=== PATIENT | female | born 1970 | race Caucasian/White ===

== ENCOUNTER → 2020-01-07 | Outpatient (CLI) | payer BC, SELFPAY ==
[2020-01-06 16:02] VITALS: BMI 29.7
[2020-01-11 17:53] LABS: HPV Reflexed? NOT INDICATED
== END | disposition home or self-care (01) ==
LOC: LABSPEC 08:54
PROVIDERS: PCP Family Medicine; Visit Provider Family Medicine
DX: Z01.419 Encounter for gynecological examination (general) (routine) without abnormal findings (principal); Z12.4 Encounter for screening for malignant neoplasm of cervix
CPT/HCPCS: 88175; G0145

== ENCOUNTER → 2020-01-12 15:50 | Outpatient (CLI) | payer BC, SELFPAY ==
[2020-01-06 16:02] VITALS: BMI 29.7
--- NOTE | 2020-01-12 15:57 | BI_ITS ---
MAMMOGRAPHY - BILATERAL SCREENING REASON FOR EXAM: Female, 50 years old. Routine annual screening examination. PERTINENT HISTORY: Non-contributory. TECHNIQUE: Digital bilateral breast alecia (3D mammographic acquisition) in the CC and MLO projections. 2-D mediolateral oblique (MLO) and craniocaudad (CC) views of both breasts were obtained. CAD: Full Field Digital Mammography with Computer Added Detection was performed. COMPARISON: Comparison is made with prior study dated November 29, 2017 and October 14, 2015. FINDINGS: Breast Composition: The breasts are almost entirely fatty. There are no dominant masses or suspicious calcifications. No other significant abnormalities are identified. There has been no significant change since the prior study. BI/SCREEN MAMM (CAD) W/ALECIA BILAT IMPRESSION: Stable bilateral screening mammogram. Yearly follow-up mammogram recommended. (A) ASSESSMENT CATEGORY: BIRADS Category 1: Negative. A letter regarding these results will be sent to the patient by the facility within 30 days. Approximately 10% of breast cancers are not detected by mammography. A normal mammogram should not delay biopsy of a clinically suspicious abnormality. [id number] Electronically Signed: Richard Lozoya, at 9:18 EST , Service support ,
== END ==
PROVIDERS: PCP Family Medicine; Referring Provider Family Medicine; Visit Provider Family Medicine
DX: Z12.31 Encounter for screening mammogram for malignant neoplasm of breast (principal)
CPT/HCPCS: 77063; 77067

== ENCOUNTER → 2021-06-07 13:22 | Outpatient (CLI) | payer OTHER, SELFPAY ==
[2021-06-07 13:01] VITALS: BMI 29.7
[2021-06-07 15:07] LABS: Absolute Lymphocyte Count 1.33 X10^3/uL (0.83-4.51); Basophil# 0.02 X10^3/uL; Basophil% 0.4 % (0-1); Eosinophil# 0.18 X10^3/uL; Eosinophils% 3.6 % (0-5); Hemoglobin 12.6 g/dL (12.0-15.0); Lymphocyte # 1.33 X10^3/ul (0.83-4.51); Lymphocyte % 26.5 % (19-41); Mean Corp Hgb Conc 32.3 g/dL (32-36); Mean Corpuscular Hgb 28.2 pg (27.0-32.0); Mean Corpuscular Volume 87.2 fL (81-99); Mean Platelet Vol. 10.5 fl (6.2-12.0); Monocyte# 0.44 X10^3/uL; Monocyte% 8.8 % (0-10); NRBC Flagged by Analyzer 0 % (0-5); Neutrophil # 3.02 X10^3/uL (2.7-7.7); Neutrophil % 60.1 % (47-70); Platelet Count 251 K/mm3 (150-450); RBC Distribution Width CV 13.1 % (11.6-14.6); RBC Distribution Width SD 41.5 fl (35.1-43.9); Red Blood Count 4.47 M/mm3 (4.2-5.4)
[2021-06-07 15:27] LABS: Erythrocyte Sedimentation Rate 42 mm/hr (0-30)
[2021-06-07 15:30] LABS: Anion Gap 6 (5-15); BUN 16 mg/dL (7-18); BUN/Creat Ratio 17.9 RATIO (10-20); Calcium,Total 8.7 mg/dL (8.5-10.1); Chloride 103 mmol/L (98-107); EST Glomerular Filtration Rate 70 mL/min (>60); Est Glom Filt Rate - Afr Amer 85 mL/min (>60); Glucose 125 mg/dL (74-106); Potassium 4.2 mmol/L (3.5-5.1); Sodium Level 138 mmol/L (136-145)
== END ==
PROVIDERS: PCP Family Medicine; Referring Provider Family Medicine; Visit Provider Family Medicine
DX: I31.9 Disease of pericardium, unspecified (principal)
CPT/HCPCS: 36415; 80048; 85025; 85652

== ENCOUNTER → 2021-06-27 15:09 | Outpatient (CLI) | payer OTHER, SELFPAY ==
[2021-06-07 13:01] VITALS: BMI 29.7
--- NOTE | 2021-06-27 15:13 | BI_ITS ---
MAMMOGRAPHY - BILATERAL SCREENING REASON FOR EXAM: Female, 51 years old. Routine annual screening examination. PERTINENT HISTORY: Non-contributory. TECHNIQUE: Digital bilateral breast alecia (3D mammographic acquisition) in the CC and MLO projections. 2-D mediolateral oblique (MLO) and craniocaudad (CC) views of both breasts were obtained. CAD: Full Field Digital Mammography with Computer Added Detection was performed. COMPARISON: Comparison is made with prior study dated 01/12/2020 and 11/29/2017. FINDINGS: Breast Composition: The breasts are heterogeneously dense, which may obscure small masses. There are no dominant masses or suspicious calcifications. No other significant abnormalities are identified. There has been no significant change since the prior study. BI/SCRN MAMM (CAD)W/ALECIA BILAT IMPRESSION: Stable bilateral screening mammogram. Yearly follow-up mammogram recommended. (A) ASSESSMENT CATEGORY: BIRADS Category 1: Negative. A letter regarding these results will be sent to the patient by the facility within 30 days. Approximately 10% of breast cancers are not detected by mammography. A normal mammogram should not delay biopsy of a clinically suspicious abnormality. [id number] Electronically Signed: Richard Lozoya MD at 8:03 EDT , Service support ,
== END ==
PROVIDERS: PCP Family Medicine; Referring Provider Family Medicine; Visit Provider Family Medicine
DX: Z12.31 Encounter for screening mammogram for malignant neoplasm of breast (principal)
CPT/HCPCS: 77063; 77067

== ENCOUNTER → 2022-08-09 | Outpatient (CLI) | payer OTHER, SELFPAY ==
--- NOTE | 2022-08-09 12:12 | BI_ITS ---
MAMMOGRAPHY - BILATERAL SCREENING REASON FOR EXAM: Female, 52 years old. Routine annual screening examination. PERTINENT HISTORY: Non-contributory. TECHNIQUE: Digital bilateral breast alecia (3D mammographic acquisition) in the CC and MLO projections. 2-D mediolateral oblique (MLO) and craniocaudad (CC) views of both breasts were obtained. CAD: Full Field Digital Mammography with Computer Added Detection was performed. COMPARISON: Comparison is made with prior study dated 06/27/2021 01/12/2020. FINDINGS: Breast Composition: The breasts are heterogeneously dense, which may obscure small masses. There are no dominant masses or suspicious calcifications. No other significant abnormalities are identified. There has been no significant change since the prior study. BI/SCRN MAMM (CAD)W/ALECIA BILAT IMPRESSION: Stable bilateral screening mammogram. Yearly follow-up mammogram recommended. (A) ASSESSMENT CATEGORY: BIRADS Category 1: Negative. A letter regarding these results will be sent to the patient by the facility within 30 days. Approximately 10% of breast cancers are not detected by mammography. A normal mammogram should not delay biopsy of a clinically suspicious abnormality. [id number] Electronically Signed: Richard Lozoya MD at 12:58 EDT ,
== END | disposition home or self-care (01) ==
LOC: OPBI 12:09
PROVIDERS: PCP Family Medicine; Visit Provider Obstetrics & Gynecology Gynecology
DX: Z12.31 Encounter for screening mammogram for malignant neoplasm of breast (principal)
CPT/HCPCS: 77063; 77067

== ENCOUNTER 2022-09-28 10:04 | Outpatient (CLI) | payer OTHER, SELFPAY ==
[2022-09-28 11:09] LABS: EXAGEN MAILED SPECIMEN
[2022-09-28 12:14] LABS: Absolute Neutrophil Count 2.5 X10^3/uL (2.0-7.7); Basophil# 0.03 X10^3/uL; Basophil% 0.7 % (0-1); Eosinophil# 0.09 X10^3/uL; Eosinophils% 2.2 % (0-5); Hematocrit 39.1 % (37-47); Hemoglobin 13.3 g/dL (12.0-15.0); Lymphocyte % 24.9 % (19-41); Mean Corpuscular Hgb 29.6 pg (27.0-32.0); Mean Corpuscular Volume 87.1 fL (81-99); Mean Platelet Vol. 11.1 fl (6.2-12.0); Monocyte# 0.35 X10^3/uL; Monocyte% 8.7 % (0-10); NRBC Flagged by Analyzer 0 % (0-5); Neutrophil # 2.53 X10^3/uL (2.7-7.7); Neutrophil % 63.3 % (47-70); Platelet Count 110 K/mm3 (150-450); RBC Distribution Width CV 12.9 % (11.6-14.6); RBC Distribution Width SD 40.9 fl (35.1-43.9); Red Blood Count 4.49 M/mm3 (4.2-5.4)
[2022-09-28 12:18] LABS: Protein, Urine (Random) 10.3 mg/dL (<11.9); Protein:Creat Ratio 124 mg/g CRE (0-200)
[2022-09-28 12:24] LABS: Color, Urine Yellow (Yellow); Glucose, Dipstick Normal (Normal); Ketone-Dipstick Negative (Negative); Leukocyte Esterase-Dipstick 25 /ul (Negative); Nitrite-Dipstick Negative (Negative); Occult Blood-Urine Negative /ul (Negative); Protein-Dipstick Negative (Negative); Specific Gravity, Urine 1.015 (1.002-1.030); Urine Bilirubin Dipstick Negative (Negative); Urine Clarity Clear (Clear); Urine Urobilinogen Normal (Normal)
[2022-09-28 12:39] LABS: ALB/GLOB Ratio 0.7 RATIO (0.9-2.4); AST(SGOT) 19 U/L (15-37); Alanine Aminotransfer ALT/SGPT 24 U/L (13-56); Albumin, Serum 3.7 g/dL (3.2-5.0); Alkaline Phosphatase 71 U/L (45-117); Anion Gap 4 (5-15); BUN 17 mg/dL (7-18); BUN/Creat Ratio 20.8 RATIO (10-20); Calcium,Total 8.9 mg/dL (8.5-10.1); Chloride 104 mmol/L (98-107); Creatinine, Serum 0.82 mg/dL (0.55-1.02); EST Glomerular Filtration Rate 77 mL/min (>60); Est Glom Filt Rate - Afr Amer 94 mL/min (>60); Globulin 5.2 g/dL (2.2-4.2); Glucose 95 mg/dL (74-106); Potassium 4.1 mmol/L (3.5-5.1); Protein, Total 8.9 g/dL (6.4-8.2); Sodium Level 136 mmol/L (136-145)
[2022-09-28 13:17] LABS: Hepatitis B Surface Antibody Non-Reactive; Hepatitis B Surface Antigen Non-Reactive (Nonreactive); Hepatitis C Antibody Non-Reactive (Nonreactive)
[2022-09-28 13:33] LABS: Partial Thromboplast Time 27.3 Seconds (24.1-36.2); Prothrombin Time (Protime)PT. 13.3 SECONDS (11.7-14.9)
[2022-10-01 03:07] LABS: Hexagonal Phase Phospholipid 2 sec (0-11)
== END 2022-09-28 23:59 | disposition home or self-care (01) ==
LOC: MTLAB 10:07
PROVIDERS: PCP Family Medicine; Referring Provider Internal Medicine Rheumatology; Visit Provider Internal Medicine Rheumatology
DX: M06.4 Inflammatory polyarthropathy (principal); R76.8 Other specified abnormal immunological findings in serum; L65.9 Nonscarring hair loss, unspecified; M19.041 Primary osteoarthritis, right hand; F32.A Depression, unspecified
CPT/HCPCS: 36415; 80053; 81002; 82570; 84156; 85025; 85598; 85610; 85730; 86706; 86803; 87340

== ENCOUNTER → 2023-08-09 | Outpatient (CLI) | payer OTHER, SELFPAY ==
--- NOTE | 2023-08-09 12:45 | ECHOCS_ITS ---
Reason For Study: Dyspnea/SOB Procedure This was a 2D Doppler, Color Flow transthoracic echocardiogram. Contrast injection was performed. Exam performed in department. Left Ventricle Normal LV size. Left ventricular systolic function is normal. The estimated ejection fraction is 65 %. No regional wall motion abnormalities noted. Right Ventricle Normal RV size. Normal systolic function. Atria Normal left atrium. Normal right atrium. Mitral Valve Normal mitral valve. Mild (1+) eccentric mitral valve insufficiency. Tricuspid Valve Normal tricuspid valve. Aortic Valve Trisinus/trileaflet aortic valve. Pulmonic Valve Normal pulmonic valve. Great Vessels Normal aortic root. The pulmonary artery is normal size. Normal inferior vena cava. Pericardium/Pleural No pericardial effusion. Medication 22 gauge I.V. with prn adaptor inserted into right arm. Diluted definity 1.5ml given slow IV push to enhance endocardial definition. Performed a rapid injection of agitated mix of 9 cc saline and 1cc air to assess for atrial septal defect. MMode/2D Measurements & Calculations LVIDd: 4.0 cm IVSd: 1.1 cm Ao root diam: 2.6 cm LVIDs: 2.9 cm LVPWd: 1.0 cm LA dimension: 3.3 cm RVDd: 3.0 cm FS: 27.1 % LAV(MOD-bp): 51.9 ml LVAd ap4: 27.0 cm2 SV(MOD-sp4): 49.6 ml LAV(MOD-bp) Indexed: 29.4 ml/m2 LVLd ap4: 8.1 cm LAV(MOD-sp2): 62.7 ml EDV(MOD-sp4): 73.3 ml LAV(MOD-sp4): 41.5 ml EDV(sp4-el): 76.1 ml LVAs ap4: 13.6 cm2 LVLs ap4: 6.8 cm ESV(MOD-sp4): 23.7 ml ESV(sp4-el): 23.0 ml EF(MOD-sp4): 67.7 % EF(sp4-el): 69.7 % SV(sp4-el): 53.1 ml LA A4 area: 17.1 cm2 RA A4 area: 11.9 cm2 TAPSE: 1.8 cm Time Measurements MV dec time: 0.17 sec Doppler Measurements & Calculations MV E max eliezer: 95.1 cm/sec Lat Peak E' Eliezer: 11.1 cm/sec Med Peak E' Eliezer: 11.8 cm/sec MV A max eliezer: 82.0 cm/sec E/E' lat: 8.6 E/E' med: 8.0 MV E/A: 1.2 MV V2 max: 132.6 cm/sec MV P1/2t max eliezer: 133.3 cm/sec Ao V2 max: 147.3 cm/sec MV max P.0 mmHg MV P1/2t: 70.9 msec Ao max P.7 mmHg MV V2 mean: 65.0 cm/sec Ao V2 mean: 99.5 cm/sec MV mean P.1 mmHg MV dec slope: 550.9 cm/sec2 Ao mean P.6 mmHg MV V2 VTI: 34.9 cm MVA(P1/2t): 3.1 cm2 Ao V2 VTI: 33.0 cm AV (velocity ratio): 0.78 LV V1 max: 106.2 cm/sec MR max eliezer: 555.9 cm/sec PA V2 max: 57.4 cm/sec LV V1 max P.5 mmHg MR max P.6 mmHg LV V1 mean P.7 mmHg MR mean eliezer: 475.6 cm/sec LV V1 mean: 78.3 cm/sec MR mean P.6 mmHg LV V1 VTI: 25.6 cm MR VTI: 218.0 cm ECHO/Echo Complete W/ Contrast Interpretation Summary Normal LV size. Left ventricular systolic function is normal. The estimated ejection fraction is 65 %. Mild (1+) eccentric mitral valve insufficiency. Contrast injection was performed. Ordering Physician: Espinoza Stacy Referring Physician: Espinoza Stacy Performed By: Devon Hendrickson RCS
== END | disposition home or self-care (01) ==
LOC: CVS 12:45
PROVIDERS: PCP Family Medicine; Referring Provider Family Medicine; Visit Provider Family Medicine
DX: R06.00 Dyspnea, unspecified (principal)
CPT/HCPCS: 93306; Q9957; A4216; C8929

== ENCOUNTER → 2023-11-05 | Outpatient (CLI) | payer OTHER, SELFPAY | END | disposition home or self-care (01) | LOC: LABSPEC 11:19 | PROVIDERS: PCP Family Medicine; Visit Provider Family Medicine | DX: J06.9 Acute upper respiratory infection, unspecified (principal) | CPT/HCPCS: 87635 ==

== ENCOUNTER → 2023-12-24 | Outpatient (CLI) | payer OTHER, SELFPAY ==
--- NOTE | 2023-12-24 15:53 | BI_ITS ---
MAMMOGRAPHY - BILATERAL SCREENING REASON FOR EXAM: Female, 53 years old. Routine annual screening examination. PERTINENT HISTORY: Non-contributory. TECHNIQUE: Digital bilateral breast alecia (3D mammographic acquisition) in the CC and MLO projections. 2-D mediolateral oblique (MLO) and craniocaudad (CC) views of both breasts were obtained. CAD: Full Field Digital Mammography with Computer Added Detection was performed. COMPARISON: Comparison is made with prior study dated August 09, 2022 and June 27, 2021. FINDINGS: Breast Composition: The breasts are heterogeneously dense, which may obscure small masses. There are no dominant masses or suspicious calcifications. No other significant abnormalities are identified. There has been no significant change since the prior study. BI/SCRN MAMM (CAD)W/ALECIA BILAT IMPRESSION: Stable bilateral screening mammogram. Yearly follow-up mammogram recommended. (A) ASSESSMENT CATEGORY: BIRADS Category 1: Negative. A letter regarding these results will be sent to the patient by the facility within 30 days. Approximately 10% of breast cancers are not detected by mammography. A normal mammogram should not delay biopsy of a clinically suspicious abnormality. [id number] Electronically Signed: Richard Lozoya MD at 13:20 EST ,
--- OUTSIDE RECORDS SUMMARY | 2023-12-24 16:16 | XMS RPT_ITS | CCD ---
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 Name Role Phone ROSA GARDNER Primary Care Physician JUAN MCCRAY DO Primary Care Physician Unavailable Primary Care Provider SADIE Darnell Attending Venancio VALDEZ MD, DR ASIF Roberts Attending Unavailab damien MCCRAY DO, JUAN R Primary Care Unavailable PATTI MOTA, DR RAMEY Attending UnavailROSA Gupta Primary Care Unavailabl e MAHENDRA MEDINA, JUAN R Primary Care Unavailable PATTI MOTA, DR RAMEY Attending Unavailabl e MAHENDRA MEDINA, JUAN R Primary Care Unavailable JOSÉ MIGUEL MOTA, DR ASIF Roberts Attending Unavailab Yaritza MOTA, DR ASIF Roberts Attending Unavailab le MAHENDRA MEDINA, JUAN R Primary Care Unavailable PATTI MOTA, DR RAMEY Attending Unavailabl e MAHENDRA MEDINA, JUAN R Primary Care Unavailable PATTI MOTA, DR RAMEY Attending Unavailabl e MAHENDRA DO, JUAN R Primary Care Unavailable BROWN DO, JUAN R Primary Care Unavailable PATTI MOTA, DR RAMEY Attending Unavailabl e BROWN DO, JUAN R Primary Care Unavailable CHRISTINE BENJAMIN PA-C Attending Unavailable WILEY PATTERSON MD Attending Unavail able BROWN DO, JUAN R Primary Care Unavailable BROWN DO, JUAN R Primary Care Unavailable IRMA CORDOVA MD Attending Unavailable PATTI MOTA, DR RAMEY Attending Unavailabl e BROWN , JUAN R Primary Care Unavailable JOSÉ MIGUEL MOTA, DR ASIF Roberts Attending Unavailab le MAHENDRA MEDINA, JUAN R Primary Care Unavailable Medications Current Medications Medication Drug Class(es) Dates Sig (Normalized) Sig (Original) escitalopram 20 mg oral tablet (8 sources) Serotonin Reuptake Inhibitor Start: 07-09-2022 escitalopram 20 mg oral tablet Dose : 20 mg = 1 tab(s), Oral, qDay, # 90 tab(s), 3 Refill(s), Pharmacy: [id number], Depression, 153, cm, 07/09/22 11:12:00 EDT, Height Start Date: 07/09/22 Status: Ordered Completed/Discontinued Medications Medication Drug Class(es) Dates Sig (Normalized) Sig (Original) folic acid 1 mg oral tablet (9 sources) Start: 08-23-2023 folic acid 1 mg tablet Problems Problem Classification Problem Date Documented Date Episodic/Chronic Immunizations and screening for infectious disease (2 sources) Abnormal finding on evaluation procedure; Translations: [Other specified abnormal immunological findings in serum] Episodic Mood disorders (1 source) Depressive disorder; Translations: [Depression, unspecified] Chronic Osteoarthritis (2 sources) Localized, primary osteoarthritis of the hand; Translations: [Primary osteoarthritis, right hand] Chronic Other aftercare (3 sources) Long-term current use of drug therapy; Translations: [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] Episodic Other non-traumatic joint disorders (9 sources) Knee pain 10-05-2015 Episodic Other non-traumatic joint disorders (1 source) Pain in right knee; Translations: [Pain in joint, lower leg] 08-30-2023 Episodic Other skin disorders (1 source) Non-scarring alopecia; Translations: [Nonscarring hair loss, unspecified] Episodic Pleurisy; pneumothorax; pulmonary collapse (1 source) Pleurisy; Translations: [Pleurisy] Onset: 11-06-2023 Episodic Rheumatoid arthritis and related disease (10 sources) Rheumatoid arthritis of multiple joints; Translations: [Rheumatoid arthritis with rheumatoid factor of multiple sites without organ or systems involvement] Chronic Spondylosis; intervertebral disc disorders; other back problems (1 source) Lumbosacral spondylosis; Translations: [Other spondylosis, lumbosacral region] Chronic Results Test Name Value Interpretation Reference Range Facil ity Vital Signs Date Time Vital Sign Value Performing Clinician Serenity win 11-06-2023 14:59-0500 Body temperature 98.42 [degF] WILEY PATTERSON MD [facility] 11-06-2023 14:59-0500 Diastolic Blood Pressure Non-Invasive 70 mm[Hg] WILEY PATTERSON MD [facility] 11-06-2023 14:59-0500 Heart rate 99 /min WILEY PATTERSON MD [facility] 11-06-2023 14:59-0500 Respiratory rate 20 /min WILEY PATTERSON MD [facility] 11-06-2023 14:59-0500 Systolic Blood Pressure Non-Invasive 125 mm[Hg] WILEY PATTERSON MD [facility] Encounters Encounter Date Encounter Type Care Provider Facility Start: 12-17-2023 ambulatory JUAN MCCRAY DO Faci lity:B Start: 12-16-2023 ambulatory JUAN MCCRAY DO Faci lity:B Start: 12-13-2023 End: 12-14-[address] ASIF VALDEZ MD Facility:B Start: 12-04-[address] ASIF VALDEZ MD F acility:B Start: 11-06-2023 End: 11-06-2023 Emergency department patient visit WILEY PATTERSON MD Facility:B Start: 11-06-2023 End: 11-06-2023 Emergency department patient visit WILEY PATTERSON MD [facility] Start: 11-05-2023 End: 11-06-[address] KAROLINE ARMSTRONG MD Facility:B Start: 11-05-2023 End: 11-05-[address] KAROLINE ARMSTRONG MD [facility] Start: 09-18-2023 Orders Only Sadie Hansen MD Work Phone: [facility] Procedures Date Procedure Procedure Detail Performing Clinician Start: 05-21-2003 Decompression of med faye nerve 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 Plan of Treatment Date Care Activity Detail Author Start: 08-02-2023 Influenza vaccination Influenza Vacc ine (#1) [facility] Start: 12-02-2022 Depression Assessment Depression Ass essment [facility] Start: 06-23-2021 Covid-19 Vaccine (3 - Moderna risk series) Covid-19 Vaccine (3 - Moderna risk series) [facility] Start: 2018 Shingrix Vaccine (1 of 2) Shingrix V accine (1 of 2) [facility] Start: 2013 Cologuard (FIT-DNA) Cologuard (FIT-D NA) [facility] Start: 2013 Colonoscopy Colonoscopy [facility] Start: 2013 Colorectal Cancer Screening Colorectal Cancer Screening [facility] Start: [address] COLONOGRAPHY [facility] Start: 2013 Diabetes Screening Diabetes Screenin g [facility] Start: 2013 Fecal Occult Blood Fecal Occult Bloo d [facility] Start: 2013 Lipid 1996 panel - S thelma or Plasma Lipid Screening [facility] Start: 2013 SIGMOIDOSCOPY SIGMOIDOSCOPY [facility] Start: 2008 Mammography Mammogram Screening [facility] Start: 1998 HPV Testing HPV Testing [facility] Start: 1989 Pap Testing Pap Testing [facility] Start: 1987 Shingrix Vaccine (1 of 2) Shingrix V accine (1 of 2) [facility] Start: 1987 Urine microalbumin profile DTa P,Tdap,Td Vaccine (1 - Tdap) [facility] Start: 1986 Hepatitis C Screening Hepatitis C Sc reening [facility] Start: 1986 HIV Screening HIV Screening [facility] Start: 1974 Pneumococcal vaccination Pneum ococcal Vaccine (1 - PCV) [facility] Start: 1968 Covid-19 Vaccine (#1) Covid-19 Vacci ne (#1) [facility] Start: 1968 Hepatitis B Vaccine (1 of 3 - 3-dose series) Hepatitis B Vaccine (1 of 3 - 3-dose series) [facility] Immunizations Immunization Date Immunization Notes Care Provider Germain carrasco 02-13-2010 influenza virus vaccine, H1N1, live [facility] 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 .1968 Unknown [id number] [id number] .1968 Unknown [id number] [id number] .1968 Unknown [id number] [id number] .1968 Unknown [id number] [id number] .1968 Unknown [id number] [id number] .1968 Unknown [id number] [id number] .627 1968 Unknown [id number] [id number] .627 1968 Unknown [id number] [id number] .627 1968 Unknown [id number] .627 Social History Date Type Detail Facility Start: 10-27-2019 End: 11-06-2023 Never smoked tobacco (finding) [facility] Sex Assigned At [facility] Tobacco smoking status KYIS Tobacco smoking consumption unknown [facility] Start: 1970 Sex Assigned At Not on file [facility] Gender identity Not on file [facility] in Functional Status Date Assessment Result Facility 11-06-2023 Functional Status Standard Safet y ID band on, Call device within reach, Bed in low position, Wheels locked, Bedside Cart Locked, Visitor at bedside, Safety level maintained [facility] Clinical Notes 06-19-2022 to 11-06-2023 Sadie Hansen MD - 08/30/2023 10:29 AM EDTTelephone Encounter - Tiffayn Alberto RN - 08/29/2023 2:22 PM EDTRadiologyRadiologyRadiology Note Date & Type Note Facility 11-06-2023 Hospital Discharge instructions Patient Education 11/06/2023 16:06:55 Pleurisy Pleurisy If you have pleurisy, the lining around your lungs is inflamed. This is most often due to a viral infection or pneumonia. It usually lasts for 10 to 14 days. It may cause sharp pain with breathing, coughing, sneezing, and movement. Antibiotics are usually not prescribed for this condition unless bacterial pneumonia is also present. The following tips will help you care for your condition at home: If symptoms are severe, rest at home for the first 2 to 3 days. When you resume activity, don't let yourself get too tired. Don't smoke. Also stay away from secondhand smoke. You may use rkbh-drf-jgvglld medicines to control pain, unless another pain medicine was prescribed. (Note: If you have chronic liver or kidney disease or have ever had a stomach ulcer or gastrointestinal bleeding, talk with your healthcare provider before using these medicines. Also talk to your provider if you are taking medicine to prevent blood clots.) Aspirin should never be given to anyone younger than 18 years of age who is ill with a viral infection or fever. It may cause severe liver or brain damage. Follow-up care Follow up with your healthcare provider, or as advised. When to seek medical advice Call your healthcare provider right away if any of these occur: Fever of 100.4 F (38 C) or higher, or as directed by your healthcare provider Coughing up lots of colored sputum (mucus) or light, blood-tinged sputum Redness, pain, or swelling of the leg Call 911 Call 911 if any of these occur: Increasing shortness of breath Increasing chest pain, or pain that spreads to the neck, arm, or back Coughing up blood [phone] The [employer]. [address] [place] [address]. All rights reserved. This information is not intended as a substitute for professional medical care. Always follow your healthcare professional's instructions. Follow Up Care 11/06/2023 14:56:38 With:JUAN MCCRAY DO Address: [facility] [address] [place] [address] [place] [phone] When:2-4 days [facility] 11-06-2023 Note Discharge Instructions Thank you for allowing [facility] to assist you with your healthcare needs. The following is important discharge information regarding your hospital visit. Diagnosis from Today's Visit Pleurisy Pleuritic pain What to Do Next Instructions from Your Care Team May continue to take ibuprofen 400 mg every 4 hours. May add Tylenol 500 mg every 6 hours for pain. Follow-up with your primary care provider. Return emergency department should you develop shortness of breath or worsening chest pain. No qualifying data available. Post Acute Orders No qualifying data available. You Need to Schedule the Following Appointments Follow Up with JUAN MCCRAY DO When Within 2-4 days Where: [facility] [address] [place] [address] [place] [address]- [phone] Allergies NKA Medications Please ask your primary doctor or pharmacist before taking any other medication not listed, including over the counter drugs, herbal medications, vitamins and or supplements as they may interact with your home medications. What How Much When Why Instructions Last Dose Unchanged escitalopram (escitalopram 20 mg oral tablet) 1 tab(s) by mouth Once a day Depression Unchanged folic acid (folic acid 1 mg oral tablet) take 2 tablets by mouth once daily Unchanged ibuprofen (ibuprofen 600 mg oral tablet) 1 tab(s) by mouth Every 8 hours Duration: 14 Days Take with food or milk. Unchanged leucovorin (leucovorin 15 mg oral tablet) take 1 tablet by mouth ONCE A WEEK Unchanged methotrexate (methotrexate 2.5 mg oral tablet) take 5 tablets by mouth every week . START BY TAKING 4 TABLETS ONCE A WEEK FOR 2 WEEKS Please take this list to your next doctor s visit. Bring all medications you take, including over the counter medications, herbals and other supplements with you to your doctor s visit. Patients and families are reminded to discard old lists and to update any records with all medication providers or retail pharmacies. Education Materials Pleurisy If you have pleurisy, the lining around your lungs is inflamed. This is most often due to a viral infection or pneumonia. It usually lasts for 10 to 14 days. It may cause sharp pain with breathing, coughing, sneezing, and movement. Antibiotics are usually not prescribed for this condition unless bacterial pneumonia is also present. The following tips will help you care for your condition at home: If symptoms are severe, rest at home for the first 2 to 3 days. When you resume activity, don't let yourself get too tired. Don't smoke. Also stay away from secondhand smoke. You may use lwwa-duw-xudlbca medicines to control pain, unless another pain medicine was prescribed. (Note: If you have chronic liver or kidney disease or have ever had a stomach ulcer or gastrointestinal bleeding, talk with your healthcare provider before using these medicines. Also talk to your provider if you are taking medicine to prevent blood clots.) Aspirin should never be given to anyone younger than 18 years of age who is ill with a viral infection or fever. It may cause severe liver or brain damage. Follow-up care Follow up with your healthcare provider, or as advised. When to seek medical advice Call your healthcare provider right away if any of these occur: Fever of 100.4 F (38 C) or higher, or as directed by your healthcare provider Coughing up lots of colored sputum (mucus) or light, blood-tinged sputum Redness, pain, or swelling of the leg Call 911 Call 911 if any of these occur: Increasing shortness of breath Increasing chest pain, or pain that spreads to the neck, arm, or back Coughing up blood [phone] [employer]. [address] [place] [address]. All rights reserved. This information is not intended as a substitute for professional medical care. Always follow your healthcare professional's instructions. Additional Information VACCINATE! IT SAVES LIVES! Members of the community who have not yet received the COVID-19 vaccine and would like to receive it can visit one of [facility] vaccine clinics. There are many vaccine clinic locations within the [facility]. For locations and available times, please visit www.gettheshot.coronavirus.[place].go v/. It is important to note that some COVID mobile vaccine clinics are held outdoors and may be canceled in rainy or stormy conditions. To learn more about pediatric vaccinations (ages 5-11), we invite you to visit the [facility] webpage. https://www.[facility].org/pag es/2447-Sfuhp-Oxjftuacjjl-Frequent tz-Ywrfi-Nokkzvqsc.html To learn more about the COVID-19 vaccine, we invite you to visit the CDC website for a list of frequently asked questions. https://www.cdc.gov/coronavirus/-ncov/vaccines/faq.html [facility] Access Instructions: Stay connected with your healthcare team and access your personal medical information anytime with the [facility] Patient Portal. If you would like a full copy of your medical records please contact the [facility] Medical Records Department Saturday through Saturday between 8a.m. and 4:30p.m. Please follow the directions below to access the portal: 1.Access the email account you provided upon registration to the [facility].2.Look for an invitation email from [facility].3.Open the email and access the invitation link: Accept Invitation to [employer]4.Fill in the required sotelo to create your account. Sign into [email or web address] with your username and password that you created in the above steps to stay up to date. You can then view a summary of results, a summary of your visits, and the ability to download your summaries to your computer or send the information securely to a physician. Remember that your healthcare information is confidential, so carefully consider who you will allow to register on the [facility] Patient Portal for access to your information. You can also access the [facility] Patient Portal on the [employer]. Simply click on Health Records under Health Data and then click on the [employer] logo. HOW TO SAFELY DISPOSE OF PRESCRIPTION MEDICATIONS Please use one of the following methods to safely dispose of your unused medications. 1.Use a drug disposal kit: the drug disposal pouch allows you to safely discard your old and unused drugs. Ask your nurse to give you one when you are discharged.2.Visit a local take-back location: Many local pharmacies and police departments have programs that collect old and unwanted prescription drugs. Call your local pharmacy or go to http://[employer]Networks.[employer] Media/7L5Rw3c to find one close to you.3.Make use of household items: Use cat litter or old coffee grounds to dispose medications if other options are not available. Mix your drugs with these household products, seal them in an airtight container and throw it into the garbage. Call [facility]: [phone] to be sure your drugs can be disposed of in this way. Some medicines may require a different approach.4.Never flush your medications down the toilet. IF YOU HAVE BEEN PRESCRIBED AN OPIOIDS FOR PAIN If you have been prescribed an opioid (such as hydrocodone, oxycodone or morphine), it is critical to understand the possible side effects and risks of opioid pain medications. Even when taken as directed, opioids can have several side effects including: Tolerance, meaning you might need to take more of a medication for the same pain relief. Nausea, vomiting and/or constipation. Sleepiness, dizziness, dry mouth, confusion, depression or itching. Physical dependence, meaning you have withdrawal symptoms when a medication is stopped ? this can develop within a few days. KNOW YOUR RESPONSIBILITIES It is important to know exactly how much and how often to take the opioid pain medications you are prescribed. Never take opioids in higher amounts or more often than prescribed. Do not combine opioids with alcohol or other drugs that cause drowsiness, such as benzodiazepines, also known as benzos, including diazepam and alprazolam, muscle relaxants or sleep aids. Never sell or share prescription opioids. This is illegal. Store opioids in a secure place and out of reach of others (including children, family, friends and visitors). The last page(s) of this document has been signed and retained as a CHART COPY Signatures Patient Education Materials Pleurisy Medication Leaflets My discharge plan and instructions have been reviewed and explained to me and IIRENE REGINA J understand my current condition and have read and understand these discharge instructions. I have received a written copy of the plan/instructions. If I have questions, I am aware that I should contact my doctor. Patient/Radiological Health Specialist Signature: Date/Time: Relationship to Patient: ___ Witness Name/Signature: Date/Time: [facility] 11-06-2023 Note Sinus rhythm Electronic Signature: WILEY PATTERSON MD 11/06/2023 15:56:11 [facility] 11-06-2023 Note ORIGINAL EXAMINATION: ONE XRAY VIEW OF THE CHEST 11/06/2023 3:45 pm COMPARISON: 05/31/2021 HISTORY: ORDERING SYSTEM PROVIDED HISTORY: Reason for Exam: chest pain, COVID FINDINGS: The lungs are without acute focal process. There is no effusion or pneumothorax. The cardiomediastinal silhouette is without acute process. The osseous structures are without acute process. IMPRESSION: No acute process. Interpreted by: Willis Bro DO Preliminary Report By: Willis Bro DO Electronically signed By Willis Bro DO Dictated Date: 11/06/2023 3:50:06 PM Prelim Date: 11/06/2023 3:50:25 PM Sign Date: 11/06/2023 3:50:25 PM Ordering Provider: ASIF THOMPSON [facility] 08-30-2023 Note HNO ID: [id number] Author: Sadie Hansen MD Service: ? Author Type: Physician Type: Progress Notes Filed: 08/30/2023 1:16 PM Note Text: History of present illness: Tamiko Bonilla is a 53 year old female who comes in today with a chief complaint of bilateral knee pain. Right worse than the left. She did not remember ever tearing her ACL's. Over the past few years she has had increasing pain in both knees. Pain is worse when working as she works on hard surfaces. She does not do any significant strenuous sporting activities or start/stop activities. She has had viscosupplementation without benefit. She has done exercises for the knee as well as high doses of ibuprofen without benefit. She comes in today for a second opinion at the request of Dr. Cherry with a chief complaint mentioned above. A copy of this note will be sent through the electronic medical record. Was history of rheumatoid arthritis. ALLERGIES No Known Allergies No past medical history on file. No past surgical history on file. Current Outpatient Medications on File Prior to Visit Medication Sig methotrexate 2.5 mg tablet take 8 tablets by mouth every week leucovorin (LEUCOVORIN) 25 mg tablet folic acid 1 mg tablet No current facility-administered medications on file prior to visit. No family history on file. Review of Symptoms: Cardiac: No chest pain Pulmonary: No trouble breathing Constitutional: No fevers, chills GI: No current GI upset Musculoskeletal: As above This is a well appearing, well nourished patient in no acute distress. Head is normocephalic and atraumatic. Patient has white sclera and pink conjunctiva. Mucous membranes are moist. Patient breathes easily and has normal chest wall excursion. Patient has a Normal. affect. Examination of her bilateral knees demonstrates significant irritability with respect to her right knee. Left knee is less so but is still present. She has good range of motion but again things are very irritable. No significant effusion. Grossly positive Dalila examinations of both knees. Medial and lateral joint line on palpation of both knees. Imaging: Magnetic Resonance Imaging from an outside facility is personally reviewed by me and demonstrates bilateral ACL deficient knees with significant chondrosis in the bilateral knees.. 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 At this point in time the horses out of the barn with these knees. Arthroscopy and even ACL reconstruction could potentially be a long run for short slide. She needs to consider knee replacement surgery. Plan: 1. I would like to discuss with Dr. Cherry. 2. Return to clinic as needed. Sadie Hansen MD [facility] 08-30-2023 History of Present illness Narrative History of present illness: Tamiko Bonilla is a 53 year old female who comes in today with a chief complaint of bilateral knee pain. Right worse than the left. She did not remember ever tearing her ACL's. Over the past few years she has had increasing pain in both knees. Pain is worse when working as she works on hard surfaces. She does not do any significant strenuous sporting activities or start/stop activities. She has had viscosupplementation without benefit. She has done exercises for the knee as well as high doses of ibuprofen without benefit. She comes in today for a second opinion at the request of Dr. Cherry with a chief complaint mentioned above. A copy of this note will be sent through the electronic medical record. Was history of rheumatoid arthritis. ALLERGIES No Known Allergies No past medical history on file. No past surgical history on file. Current Outpatient Medications on File Prior to Visit Medication Sig methotrexate 2.5 mg tablet take 8 tablets by mouth every week leucovorin (LEUCOVORIN) 25 mg tablet folic acid 1 mg tablet No current facility-administered medications on file prior to visit. No family history on file. Review of Symptoms: Cardiac: No chest pain Pulmonary: No trouble breathing Constitutional: No fevers, chills GI: No current GI upset Musculoskeletal: As above This is a well appearing, well nourished patient in no acute distress. Head is normocephalic and atraumatic. Patient has white sclera and pink conjunctiva. Mucous membranes are moist. Patient breathes easily and has normal chest wall excursion. Patient has a Normal. affect. Examination of her bilateral knees demonstrates significant irritability with respect to her right knee. Left knee is less so but is still present. She has good range of motion but again things are very irritable. No significant effusion. Grossly positive Dalila examinations of both knees. Medial and lateral joint line on palpation of both knees. Imaging: Magnetic Resonance Imaging from an outside facility is personally reviewed by me and demonstrates bilateral ACL deficient knees with significant chondrosis in the bilateral knees.. 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 At this point in time the horses out of the barn with these knees. Arthroscopy and even ACL reconstruction could potentially be a long run for short slide. She needs to consider knee replacement surgery. Plan: 1. I would like to discuss with Dr. Cherry. 2. Return to clinic as needed. Sadie Hansen MD documented in this encounter [facility] 08-29-2023 Miscellaneous Notes Called and spoke with patient to confirm PTC CD. This patient stated her name is not the patient in this record. This patient needs no appt with Dr Hansen and does not need to see orthopedics. Clearly a mistake scheduling. Appt cancelled. Tiffany Alberto RN documented in this encounter [facility] 06-19-2022 Evaluation + Plan note Future Scheduled TestsMA Mammo Screening Bilateral w/ Bharathi 06/19/22 [facility] Evaluation + Plan note No data available for this section [facility] Evaluation + Plan note Future Appointments Appointment Date:07/17/2022 10:00:00 AM Scheduled Provider:IVÁN LUGO MD Location:[facility] Appointment Type: OV Diagnostic Tests PendingTestosterone Level Total 06/19/22Rheumatoid Factor 06/19/22Antinuclear Antibody Screen, Serum 06/19/22 Future Scheduled TestsMA Mammo Screening Bilateral w/ Bharathi 06/19/22 [facility] Evaluation + Plan note Future Appointments Appointment Date:12/04/2023 01:00:00 PM Scheduled Provider: Location:[facility] Appointment Type:CT Knee w/o Contrast Right Future Scheduled TestsCT Knee w/o Contrast Right 12/04/23 [facility] Diagnosis Primary osteoarthritis of both knees- Primary Primary localized osteoarthrosis, lower leg documented in this encounter [facility] Discharge instructions No data available for this section [facility] Progress note No data available for this section [facility] Summary Purpose Family History No Family History Records Found No data available for this section No data available for this section No Family History Records Found Advance Directives No Advanced Directives Records FoundNo Advanced Directives Records Found Reason for Referral Specialty Diagnoses / Procedures Referred By Contac t Referred To Contact Orthopedics Diagnoses Primary osteoarthritis of both knees Procedures CONSULT TO ORTHOPAEDICS OFFICE/OUTPATIENT [facility] 60-74 MINUTES Sadie Hansen MD [address] [place] [address] Referral ID Status Reason Start Date Expiration Date Visits Requested Visits Authorized [id number] Authorized PCP Requested Referral 3 09/17/2024 1 1 Additional Source Comments Care Team (unrecognized sect ion and content) Care Team Personnel Name: ROSA MAGANA APRN-SANTIAGO Position: P4 Advanced Practice Nurse Med Service: Active Provider Member Role: Primary Care Physician Address: Address: [address] [facility] [place] [address]- Care Team Related Persons Name: IVIS HARDING Address: Home [address] [place] [address] [address] [place] Address: Temporary [address] [place] [address] [address] [place] [id number] Name: IRENE, JAMIE J Address: Home [address] [place], [place] [id number] [place] Address: Temporary [address] [place], [place] [id number] Name: DAVID BONILLA Address: Home [address] [place], [place] [phone] [place] Care Team Personnel Name: ROSA MAGANA Position: P4 Advanced Practice Nurse Member Role: Primary Care Physician Address: Address: [address] [place] [address] [place] Care Team Related Persons Name: HARDINGIVIS Address: Home [address] [address] [place] Address: Temporary [address] [address] Name: JAMIE BONILLA Address: Home [address] [place], [place] [id number] [place] Address: Temporary [address] [place], [place] [id number] Name: DAVID BONILLA Address: Home [address] [place], [place] [phone] [place] Care Team Personnel Name: ROSA MAGANA Position: P4 [employer] Member Role: Primary Care Physician Address: Address: [address] [place] [address] [place] Care Team Related Persons Name: IVIS HARDING Address: Home [address] [address] [place] Address: Temporary [address] [place] [address] Name: JAMIE BONILLA Address: Home [address] [place], [place] [id number] [place] Address: Temporary [address] [place], [place] [phone] Name: DAVID BONILLA Address: Home [address] [place], [place] [phone] [place] Patient Care team informatio n (unrecognized section and content) Care Team Personnel Name: JUAN MCCRAY DO Member Role: Primary Care Physician Address: Address: [facility] [address] [place] [address] [place] Care Team Related Persons Name: IVIS HARDING Address: Home [address] [address] [place] Address: Temporary [address] [address] Name: JAMIE BONILLA Address: Home [address] [place], [place] [phone] [place] Address: Temporary [address] [place], [place] [phone] Name: DAVID BONILLA Address: Home [address] [place], [place] [phone] [place] Care Team Personnel Name: JUAN MCCRAY DO Member Role: Primary Care Physician Address: Address: [address] [place] [address]- [place] Care Team Related Persons Name: IVIS HARDING Address: Home [address] [address] [place] Address: Temporary [address] [address] Name: JAMIE BONILLA Address: Home [address] [place], [place] [id number] [place] Address: Temporary [address] [place], [place] [phone] Name: DAVID BONILLA Address: Home [address] [place], [place] [phone] [place] Care Team Personnel Name: JUAN MCCRAY DO Member Role: Primary Care Physician Address: Address: [address] [place] [address] [place] Care Team Related Persons Name: IVIS HARDING Address: Home [address] [address] [place] Address: Temporary [address] [address] Name: JAMIE BONILLA Address: Home [address] [place], [place] [phone] [place] Address: Temporary [address] [place], [place] [phone] Name: DAVID BONILLA Address: Home [address] [place], [place] [phone] [place] Care Team Personnel Name: JUAN MCCRAY DO Member Role: Primary Care Physician Address: Address: [address] [place] [address]- [place] Care Team Related Persons Name: IVIS HARDING Address: Home [address] [address] [place] Address: Temporary [address] [address] Name: JAMIE BONILLA Address: Home [address] [place] [phone] [place] Address: Temporary [address] [place] [phone] Name: DAVID BONILLA Address: Home [address] [place] [phone] Care Team Personnel Name: JUAN MCCRAY DO Member Role: Primary Care Physician Address: Address: [facility] [address] [place] [address] Name: ASIF THOMPSON DO Position: Resident Member Role: Resident Address: Address: [address] [facility] [place] [address]- Name: WILEY PATTERSON MD Position: ED Physician Member Role: Attending Physician Address: Address: [facility] [address] [place] [address] Name: Elda Julio RN Position: ED RN Member Role: ED RN Care Team Related Persons Name: IVIS HARDING Address: [address] [address] [place] Address: [place] [phone] Name: JAMIE BONILLA Address: Home [address] [place] [phone] Address: Temporary [address] [place] [phone] Name: SAIRA BONILLAWilber Mcgrath Address: Home [address] [place] [phone] Source Comments (unrecognize d section and content) In the event this informatio n is protected by the Federal Confidentiality of Alcohol and Drug Abuse Patient Records regulations: The Federal rules restrict any use of the information to criminally investigate or prosecute any alcohol or drug abuse patient.[facility] the event this information is protected by the Federal Confidentiality of Alcohol and Drug Abuse Patient Records regulations: The Federal rules restrict any use of the information to criminally investigate or prosecute any alcohol or drug abuse patient.[facility] the event this information is protected by the Federal Confidentiality of Alcohol and Drug Abuse Patient Records regulations: The Federal rules restrict any use of the information to criminally investigate or prosecute any alcohol or drug abuse patient.[facility] Reason for Visit (unrecogniz ed section and content) INFORMATION SOURCE (unrecogn ized section and content) DATE CREATED AUTHOR AUTHOR'S ORGANIZ ATION 12/18/2023 [facility] ([place]) FOR RECORDS PERTAINING TO PATIENTS WHO ARE OR HAVE BEEN ENROLLED IN A CHEMICAL DEPENDENCY/SUBSTANCEABUSE PROGRAM, SOME INFORMATION MAY BE OMITTED. This clinical summary was aggregated from multiple sources. Caution should be exercised in using it in the provision of clinical care. This summary normalizes information from multiple sources, and as a consequence, information in this document may materially change the coding, format and clinical context of patient data. In addition, data may be omitted in some cases. CLINICAL DECISIONS SHOULD BE BASED ON THE PRIMARY CLINICAL RECORDS. [facility] [employer] [facility]. provides no warranty or guarantee of the accuracy or completeness of information in this document.
== END | disposition home or self-care (01) ==
LOC: OPBI 15:53
PROVIDERS: PCP Family Medicine; Referring Provider Family Medicine; Visit Provider Family Medicine
DX: Z12.31 Encounter for screening mammogram for malignant neoplasm of breast (principal)
CPT/HCPCS: 77063; 77067

== ENCOUNTER → 2023-12-26 | Outpatient (CLI) | payer OTHER, SELFPAY ==
--- OUTSIDE RECORDS SUMMARY | 2023-12-26 05:54 | XMS RPT_ITS | CCD ---
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 11-06-2023 14:59-0500 Diastolic Blood Pressure Non-Invasive 70 mm[Hg] WILEY PATTERSON MD [facility] 11-06-2023 14:59-0500 Heart rate 99 /min WILEY PATTERSON MD [facility] 11-06-2023 14:59-0500 Respiratory rate 20 /min WILEY PATTERSON MD [facility] 11-06-2023 14:59-0500 Systolic Blood Pressure Non-Invasive 125 mm[Hg] WILEY PATTERSON MD 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 Plan of Treatment Date Care Activity Detail Author Start: 08-02-2023 Influenza vaccination Influenza Vacc ine (#1) [facility] Start: 12-02-2022 Depression Assessment Depression Ass essment [facility] Start: 06-23-2021 Covid-19 Vaccine (3 - Moderna risk series) Covid-19 Vaccine (3 - Moderna risk series) [facility] Start: 2018 Shingrix Vaccine (1 of 2) Shingrix V accine (1 of 2) [facility] Start: 2013 Cologuard (FIT-DNA) Cologuard (FIT-D NA) [facility] Start: 2013 Colonoscopy Colonoscopy [facility] Start: 2013 Colorectal Cancer Screening Colorectal Cancer Screening [facility] Start: [address] COLONOGRAPHY [facility] Start: 2013 Diabetes Screening Diabetes Screenin g [facility] Start: 2013 Fecal Occult Blood Fecal Occult Bloo d [facility] Start: 2013 Lipid 1996 panel - S thelma or Plasma Lipid Screening [facility] Start: 2013 SIGMOIDOSCOPY SIGMOIDOSCOPY [facility] Start: 2008 Mammography Mammogram Screening [facility] Start: 1998 HPV Testing HPV Testing [facility] Start: 1989 Pap Testing Pap Testing [facility] Start: 1987 Shingrix Vaccine (1 of 2) Shingrix V accine (1 of 2) [facility] Start: 1987 Urine microalbumin profile DTa P,Tdap,Td Vaccine (1 - Tdap) [facility] Start: 1986 Hepatitis C Screening Hepatitis C Sc reening [facility] Start: 1986 HIV Screening HIV Screening [facility] Start: 1974 Pneumococcal vaccination Pneum ococcal Vaccine (1 - PCV) [facility] Start: 1968 Covid-19 Vaccine (#1) Covid-19 Vacci ne (#1) [facility] Start: 1968 Hepatitis B Vaccine (1 of 3 - 3-dose series) Hepatitis B Vaccine (1 of 3 - 3-dose series) [facility] Immunizations Immunization Date Immunization Notes Care Provider Germain carrasco 02-13-2010 influenza virus vaccine, H1N1, live [facility] 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 [facility] [place] 02-13-2010 influenza virus vaccine, unspecified formulation Sadie Hansen MD Work Phone: [facility] Payers Date Payer Category Payer Private Health Insurance LATOYA BHAKTA OAP [id number] 2022-Present [phone] [address] [place] [address] Open Access [id number] 2022 Private Health Insurance [id number] 1968 Unknown [id number] [id number] .1968 Unknown [id number] 2.16.840.1.546014.3.579.2 .1968 Unknown [id number] 2.16.840.1.480379.3.579.2 1968 Unknown [id number] 2.16.840.1.049591.3.579.2 .1968 Unknown [id number] 2.16.840.1.392873.3.579.2 .1968 Unknown [id number] 2.16.840.1.009429.3.579.2 .1968 Unknown [id number] 2.16.840.1.706288.3.579.2 .1968 Unknown [id number] 2.16.840.1.581165.3.579.2 .1968 Unknown [id number] 2.16.840.1.441656.3.579.2 .1968 Unknown [id number] 2.16.840.1.973429.3.579.2 .627 1968 Unknown [id number] 2.16.840.1.046845.3.579.2 .627 1968 Unknown [id number] 2.16.840.1.773949.3.579.2 .627 1968 Unknown [id number] 2.16.840.1.278088.3.579.2 .627 Social History Date Type Detail Facility Start: 10-27-2019 End: 11-06-2023 Never smoked tobacco (finding) [facility] Sex Assigned At [facility] Tobacco smoking status COIS Tobacco smoking consumption unknown [facility] Start: 1970 Sex Assigned At Not on file [facility] Gender identity Not on file [facility] in Functional Status Date Assessment Result Facility 11-06-2023 Functional Status Standard Safet y ID band on, Call device within reach, Bed in low position, Wheels locked, Bedside Cart Locked, Visitor at bedside, Safety level maintained [facility] Clinical Notes 06-19-2022 to 11-06-2023 Sadie Hansen MD - 08/30/2023 10:29 AM EDTTelephone Encounter - Tiffany Alberto RN - 08/29/2023 2:22 PM EDTRadiologyRadiologyRadiology [...] away from secondhand smoke. You may use yvfk-kui-axrthbv medicines to control pain, unless another pain [...] neck, arm, or back Coughing up blood [phone] [employer] [place] [address]. All rights reserved. This information is not intended as a substitute for professional medical care. Always follow your healthcare professional's instructions. Follow Up Care 11/06/2023 14:56:38 With:JUAN MCCRAY DO Address: [facility] [address] [place] [address] [place] [phone] When:2-[address] [facility] 11-06-2023 Note Discharge Instructions Thank you for allowing [facility] to assist you with your healthcare needs. [...] MCCRAY DO When Within 2-4 days Where: [facility] [address] [place] [address] [place] [phone] Allergies NKA Medications Please ask your primary [...] away from secondhand smoke. You may use ugme-lju-mluemly medicines to control pain, unless another pain [...] neck, arm, or back Coughing up blood [phone] [employer] [place] [address]. All rights reserved. This information is not intended as a substitute for professional medical care. Always follow your healthcare professional's instructions. Additional Information VACCINATE! IT SAVES LIVES! Members of the community who have not yet received the COVID-19 vaccine and would like to receive it can visit one of [facility] vaccine clinics. There are many vaccine clinic locations within the [facility]. For locations and available times, please visit [email or web address] [email or web address] It is important to note that some COVID mobile vaccine clinics are held outdoors and may be canceled in rainy or stormy conditions. To learn more about pediatric vaccinations (ages 5-11), we invite you to visit the [facility] webpage. https://www.[facility].org/pag es/2440-Sdrtn-Nxahvrmvblq-Frequent mw-Lkxkb-Mjlwgqvza.html To learn more about the COVID-19 vaccine, we invite you to visit the CDC website for a list of frequently asked questions. https://www.cdc.gov/coronavirus/-ncov/vaccines/faq.html [facility] Patient [facility] Access Instructions: Stay connected with your healthcare team and access your personal medical information anytime with the [facility] Patient [facility]. If you would like a full copy of your medical records please contact the [facility] Medical Records Department Saturday through Saturday between 8a.m. and 4:30p.m. Please follow the directions below to access the portal: 1.Access the email account you provided upon registration to the [facility].2.Look for an invitation email from [facility].3.Open the email and access the invitation link: Accept Invitation to [employer]4.Fill in the required sotelo to create your account. Sign into [email or web address] with your username and password that you [...] you will allow to register on the [facility] Patient Portal for access to your information. You can also access the [facility] Patient Portal on the Needish. Simply click on Health Records under Health Data and then click on the AppMyDay logo. HOW TO SAFELY DISPOSE OF PRESCRIPTION [...] Call your local pharmacy or go to http://LuxTicket.sg.MODLOFT/[email or web address] to find one close to you.3.Make use of household items: Use cat litter or old coffee grounds to dispose medications if other options are not available. Mix your drugs with these household products, seal them in an airtight container and throw it into the garbage. Call [facility]: [phone] to be sure your drugs can be [...] aware that I should contact my doctor. Patient/Procedure Analyst Signature: Date/Time: Relationship to Patient: ___ Witness Name/Signature: Date/Time: [facility] 11-06-2023 Note Sinus rhythm Electronic Signature: WILEY PATTERSON MD 11/06/2023 15:56:[address] [facility] 11-06-2023 Note ORIGINAL EXAMINATION: ONE XRAY [...] 11/06/2023 3:50:25 PM Ordering Provider: ASIF THOMPSON [facility] 08-30-2023 Note HNO ID: [id number] Author: Sadie Hansen MD Service: ? Author [...] Sadie Hansen MD documented in this encounter [facility] 08-29-2023 Miscellaneous Notes Called and spoke with patient to confirm PTC CD. This patient stated her name is not the patient in this record. This patient needs no appt with Dr Hansen and does not need to see orthopedics. Clearly a mistake scheduling. Appt cancelled. Tiffany Alberto RN documented in this encounter [facility] 06-19-2022 Evaluation + Plan note Future Scheduled TestsMA Mammo Screening Bilateral w/ Bharathi 06/19/[address] [facility] Evaluation + Plan note No data available for this section [facility] Evaluation + Plan note Future Appointments Appointment Date:07/17/2022 10:00:00 AM Scheduled Provider:IVÁN LUGO MD Location:[facility] Appointment Type: OV Diagnostic Tests PendingTestosterone Level Total 06/19/22Rheumatoid Factor 06/19/22Antinuclear Antibody Screen, Serum 06/19/22 Future Scheduled TestsMA Mammo Screening Bilateral w/ Bharathi 06/19/[address] [facility] Evaluation + Plan note Future Appointments Appointment Date:12/04/2023 01:00:00 PM Scheduled Provider: Location:[facility] Appointment Type:CT Knee w/o Contrast Right Future Scheduled TestsCT Knee w/o Contrast Right 12/04/[address] [facility] Diagnosis Primary osteoarthritis of both knees- Primary Primary localized osteoarthrosis, lower leg documented in this encounter [facility] Discharge instructions No data available for this section [facility] Progress note No data available for this section [facility] Summary Purpose Family History No Family [...] both knees Procedures CONSULT TO ORTHOPAEDICS OFFICE/OUTPATIENT [facility] 60-74 MINUTES Sadie Hansen MD [address] [place] [address] Referral ID Status Reason Start Date Expiration Date Visits Requested Visits Authorized [id number] Authorized PCP Requested Referral 3 09/17/2024 1 1 Additional Source Comments Care Team (unrecognized sect ion and content) Care Team Personnel Name: ROSA MAGANA APRN-SANTIAGO Position: P4 Advanced Practice Nurse Med Service: Active Provider Member Role: Primary Care Physician Address: Address: [address] [facility] [place] [address]- Care Team Related Persons Name: IVIS HARDING Address: Home [address] [place] [address] [address] [place] Address: Temporary [address] [place] [address] [address] [place] [phone] Name: IRENE, JAMIE J Address: Home [address] [place], [place] [phone] [place] Address: Temporary [address] [place], [place] [phone] Name: DAVID BONILLA Address: Home [address] [place], [place] [phone] [place] Care Team Personnel Name: ROSA MAGANA Position: P4 Advanced Practice Nurse Member Role: Primary Care Physician Address: Address: [address] [place] [address] [place] Care Team Related Persons Name: HARDINGIVIS Address: Home [address] [address] [place] Address: Temporary [address] [address] Name: JAMIE BONILLA Address: Home [address] [place], [place] [phone] [place] Address: Temporary [address] [place], [place] [phone] Name: DAVID BONILLA Address: Home [address] [place], [place] [phone] [place] Care Team Personnel Name: ROSA MAGANA Position: P4 Advanced Stopper Grinder Member Role: Primary Care Physician Address: Address: [address] [place] [address] [place] Care Team Related Persons Name: IVIS HARDING Address: Home [address] [address] [place] Address: Temporary [address] [place] [address] Name: JAMIE BONILLA Address: Home [address] [place], [place] [phone] [place] Address: Temporary [address] [place], [place] [phone] Name: DAVID BONILLA Address: Home [address] [place], [place] [phone] [place] Patient Care team informatio n (unrecognized section and content) Care Team Personnel Name: JUAN MCCRAY DO Member Role: Primary Care Physician Address: Address: [facility] [address] [place] [address] [place] Care Team Related Persons Name: IVIS HARDING Address: Home [address] [address] [place] Address: Temporary [address] [address] Name: JAMIE BONILLA Address: Home [address] [place], [place] [phone] [place] Address: Temporary [address] [place] [phone] Name: DAVID BONILLA Address: Home [address] [place], [place] [phone] [place] Care Team Personnel Name: JUAN MCCRAY DO Member Role: Primary Care Physician Address: Address: [address] [place] [address]- [place] Care Team Related Persons Name: IVIS HARDING Address: Home [address] [address] [place] Address: Temporary [address] [address] Name: JAMIE BONILLA Address: Home [address] [place], [place] [phone] [place] Address: Temporary [address] [place], [place] [phone] Name: DAVID BONILLA Address: Home [address] [place], [place] [phone] [place] Care Team Personnel Name: JUAN MCCRAY DO Member Role: Primary Care Physician Address: Address: [address] [place] [address]- [place] Care Team Related Persons Name: IVIS HARDING Address: Home [address] [address] [place] Address: Temporary [address] [address] Name: JAMIE BONILLA Address: Home [address] [place], [place] [phone] [place] Address: Temporary [address] [place], [place] [phone] Name: DAVID BONILLA Address: Home [address] [place], [place] [phone] [place] Care Team Personnel Name: JUAN MCCRAY DO Member Role: Primary Care Physician Address: Address: [address] [place] [address]- [place] Care Team Related Persons Name: IVIS HARDING Address: Home [address] [address] [place] Address: Temporary [address] [address] Name: JAMIE BONILLA Address: Home [address] [place] [phone] [place] Address: Temporary [address] [place] [phone] Name: DAVID BONILLA Address: Home [address] [place] [phone] Care Team Personnel Name: JUAN MCCRAY DO Member Role: Primary Care Physician Address: Address: [facility] [address] [place] [id number] Name: ASIF THOMPSON DO Position: Resident Member Role: Resident Address: Address: [address] [facility] [place] [address]- Name: WILEY PATTERSON MD Position: ED Physician Member Role: Attending Physician Address: Address: [facility] [address] [place] [id number] Name: Elda Julio RN Position: ED RN Member Role: ED RN Care Team Related Persons Name: IVIS HARDING Address: [address] [address] [place] Address: [place] [phone] Name: JAMIE BONILLA Address: Home [address] [place] [phone] Address: Temporary [address] [place] [phone] Name: SAIRA BONILLAWilber Mcgrath Address: Home [address] [place] [phone] Source Comments (unrecognize d section and content) In the event this informatio n is protected by the Federal Confidentiality of Alcohol and Drug Abuse Patient Records regulations: The Federal rules restrict any use of the information to criminally investigate or prosecute any alcohol or drug abuse patient.[facility] the event this information is protected by the Federal Confidentiality of Alcohol and Drug Abuse Patient Records regulations: The Federal rules restrict any use of the information to criminally investigate or prosecute any alcohol or drug abuse patient.[facility] the event this information is protected by the Federal Confidentiality of Alcohol and Drug Abuse Patient Records regulations: The Federal rules restrict any use of the information to criminally investigate or prosecute any alcohol or drug abuse patient.[facility] Reason for Visit (unrecogniz ed section and content) INFORMATION SOURCE (unrecogn ized section and content) DATE CREATED AUTHOR AUTHOR'S ORGANIZ ATION 12/18/2023 [facility] ([place]) FOR RECORDS PERTAINING TO PATIENTS WHO ARE [...] BE BASED ON THE PRIMARY CLINICAL RECORDS. [facility] [employer] [facility]. provides no warranty or guarantee of the accuracy or completeness of information in this document.
[2023-12-26 07:25] LABS: Absolute Lymphocyte Count 1.04 X10^3/uL (0.83-4.51); Absolute Neutrophil Count 2.9 X10^3/uL (2.0-7.7); Basophil# 0.02 X10^3/uL; Basophil% 0.4 % (0-1); Eosinophil# 0.09 X10^3/uL; Eosinophils% 1.9 % (0-5); Hematocrit 35.6 % (37-47); Hemoglobin 11.6 g/dL (12.0-15.0); Lymphocyte # 1.04 X10^3/ul (0.83-4.51); Lymphocyte % 22.1 % (19-41); Mean Corp Hgb Conc 32.6 g/dL (32-36); Mean Corpuscular Hgb 30.1 pg (27.0-32.0); Mean Corpuscular Volume 92.5 fL (81-99); Mean Platelet Vol. 11.1 fl (6.2-12.0); Monocyte# 0.64 X10^3/uL; Monocyte% 13.6 % (0-10); NRBC Flagged by Analyzer 0 % (0-5); Neutrophil % 61.8 % (47-70); Platelet Count 134 K/mm3 (150-450); RBC Distribution Width CV 14.6 % (11.6-14.6); Red Blood Count 3.85 M/mm3 (4.2-5.4); White Blood Count 4.7 K/mm3 (4.4-11.0)
== END | disposition home or self-care (01) ==
LOC: LAB 05:50
PROVIDERS: PCP Family Medicine; Referring Provider Specialist; Visit Provider Specialist
DX: Z01.818 Encounter for other preprocedural examination (principal)
CPT/HCPCS: 36415; 85025

== ENCOUNTER 2024-02-10 23:39 | Emergency (ER) | payer OTHER, SELFPAY ==
[2024-02-10 23:39] VITALS: BP 148/74; PULSE 98; RESP 16; TEMP 36.6; O2SAT 96; BMI 31.1
--- NOTE | 2024-02-10 23:56 | ED.VIS.LOWEX ---
HPI History of Present Illness Chief Complaint: Lower Extremity Injury Informant: patient Narrative Narrative: 54-year-old female presenting to the emergency room after being referred here by her orthopedic surgeon. Patient states she is postop day 4 from a left knee replacement. She states that she has had swelling of the knee and the distal leg that she has been unable to get it down. Today she notes a blister on the posterior medial aspect of the knee. She sent a picture to her surgeon who advised her to come to the emergency for DVT ultrasound. Patient currently not on a blood thinner. She is taking aspirin therapy. She has not had prior DVT or PE. She denies chest pain shortness of breath. [facility] Medical History Bilateral primary osteoarthritis of knee History of torn meniscus of right knee Left knee pain Pericarditis Right knee pain Upper respiratory infection Home Medications ibuprofen 600 mg tablet 600 mg PO BID 06/07/21 [History Last Taken Unknown] folic acid 1 mg tablet 1 mg PO DAILY 04/18/23 [History Last Taken Unknown] methotrexate (PF) 7.5 mg/0.15 mL subcutaneous auto-injector 7.5 mg subcut QWEEK 04/18/23 [History Last Taken Unknown] terbinafine HCl 250 mg tablet 250 mg PO DAILY #30 tabs 05/09/23 [Rx Last Taken Unknown] leucovorin calcium 5 mg tablet 5 mg PO QWEEK 07/03/23 [History Last Taken Unknown] Allergy/AdvReac Type Severity Reaction Status Date / Time No Known Allergies Allergy Unverified 12/17/23 14:50 Family History Father Diabetes Heart disease Brother Diabetes Mother Arthritis Surgical History History of History of carpal tunnel release History of cholecystectomy History of knee surgery Social History Smoking Status: Never smoker alcohol intake: current alcohol intake frequency: holidays/special occasions only substance use type: does not use what type of physical activity do you participate in: none ROS ROS ED Constitutional Constitutional ED: Denies chills, fever(s) or weight loss Eyes Eyes: Denies change in vision or diplopia ENT ENT ED: Denies ear pain, rhinorrhea or sore throat Cardiovascular Cardiovascular: Denies chest pain, orthopnea, palpitations or racing heartbeat Respiratory/Chest Respiratory/Chest: Denies cough, dyspnea or orthopnea Gastrointestinal Gastrointestinal: Denies abdominal pain, diarrhea, nausea or vomiting Genitourinary Genitourinary ED: Denies dysuria, hematuria or urinary frequency Musculoskeletal Musculoskeletal: Reports other Details: Left leg knee swelling. Blister as described in history. ; Denies arthralgias or myalgias Integumentary Denies abscess or rash Neurologic Neurologic: Denies headache(s) or weakness Psychiatric Psychiatric: Denies anxiety, depression, suicidal ideation or suicidal thoughts Endocrine Endocrinology: Denies polydipsia, polyphagia or polyuria Allergic/Immunologic Allergic/Immunologic ED: Denies mouth swelling, tongue swelling or urticaria EXAM Physical Exam Const Vital Signs: 02/10/24 23:39 Temperature 98 F Temperature Source Temporal Pulse Rate 8 L Respiratory Rate 16 Blood Pressure 148/74 H Blood Pressure Mean 98 Pulse Ox 96 Oxygen Delivery Method Room Air Positive well nourished and well developed General Appearance ED: well developed HEENT Reports normocephalic, head/scalp atraumatic and moist mucous membranes Eyes PERRL and EOMs intact bilaterally Neck no lymphadenopathy, supple and no JVD Resp normal respiratory effort and clear to auscultation bilaterally Cardio regular rate, regular rhythm and no murmurs GI normal to inspection, nondistended, normoactive bowel sounds and non-tender Palpation: soft Back/Spine no CVA tenderness and normal ROM Extremity Extremity Narrative: There are no palpable cords. There is a nickel sized bullae in the posterior medial aspect of the knee. There is no significant erythema noted. Healing surgical incisions and dressings in place. General Extremety ED: Yes edema General Extremity: edema left lower extremity mild Neuro oriented x3 and CN's II-XII intact bilaterally Sensorium / Orientation: alert Motor Exam: strength 5/5 throughout Psych mental status grossly normal Mood & Affect: Negative for depressed or tearful Skin no rashes or lesions noted and no wounds MDM MDM MDM Narrative Medical decision making narrative: Unfortunately do not have duplex ultrasound available to me tonight. Given that she is postoperative and with leg swelling I do not think a D-dimer is the appropriate test. I spoke with on-call orthopedics Dr. Cherry. We will set her up for a duplex ultrasound tomorrow. The interim I will give her 1.5 mg/kg of Lovenox at their direction. This will bridge her until tomorrow in case there is a DVT. At the current time she is not experiencing chest pain or shortness of breath. She is not hypoxic. I do not think we need to pursue PE at this time. History & Record Review Discussion w/independent historian: Patient and Significant other Discharge Plan Triage Chief Complaint: Lower Extremity Injury ED Provider: Mode Bennett Dx/Rx/DC Orders Instructions: ED Deep Vein Thrombosis (DVT) Prescriptions: No Action ibuprofen 600 mg tablet 600 mg PO BID methotrexate (PF) 7.5 mg/0.15 mL auto-injector 7.5 mg subcut QWEEK folic acid 1 mg tablet 1 mg PO DAILY leucovorin calcium 5 mg tablet 5 mg PO QWEEK terbinafine HCl 250 mg tablet 250 mg PO DAILY Qty: 30 6RF Other Ambulatory Orders: Venous Duplex US, Unilateral (Stat) Facility: [facility] - Location: [facility] Ordered By: Dr. Mode Bennett Primary Care Provider: Espinoza Stacy Referrals: Espinoza Stacy DO [Primary Care Provider] - Ang Stone MD [Med Staff - Active Staff] - 1 Day Activity Restrictions/Additional Instructions: As discussed I do not have duplex ultrasound available to me at this hour. I have ordered a duplex ultrasound for you to get tomorrow. I spoke with on-call orthopedics who is advising a dose of Lovenox tonight. This will bridge you until tomorrow. In essence we are treating as if there is a diagnosed DVT. This resulted in increased risk of bleeding as it is a blood thinner. Please continue postoperative instructions as previously instructed by your surgeon. Disposition Disposition: Home, Self Care
--- OUTSIDE RECORDS SUMMARY | 2024-02-11 00:16 | XMS RPT_ITS | CCD ---
Author Name Unknown Address [address] [place] [address] Organization [facility] Care Team Providers Care Product Grader Name Role Phone CHINO BASSETTNSukhjinderROSA HENDERSON Primary Care Physician [phone] JUAN MCCRAY DO Primary Care Physician Unavailable Primary Care Provider SADIE Darnell Attending Unavailable BROWN DO, JUAN R Primary Care Unavailable JOSÉ MIGUEL MOTA, DR ASIF Roberts Attending Unavailab damien ARMSTRONG MD, DR RAMEY Attending Unavailabl e BROWN DO, JUAN R Primary Care Unavailable JOSÉ MIGUEL MOTA, DR ASIF Roberts Attending Unavailab le MAHENDRA DO, JUAN R Primary Care Unavailable JOSÉ MIGUEL MOTA, DR ASIF Roberts Attending Unavailab le BROWN DO, JUAN R Primary Care Unavailable BROWN DO, JUAN R Primary Care Unavailable CHRISTINE BENJAMIN PA-C Attending Unavailable BROWN DO, JUAN R Primary Care Unavailable JOSÉ MIGUEL MOTA, DR ASIF Roberts Attending Unavailab le MAHENDRA MEDINA, JUAN R Primary Care Unavailable JOSÉ MIGUEL MOTA, DR ASIF Roberts Attending Unavailab WILEY Peralta Attending Unavailable BROWN DO, JUAN R Primary Care Unavailable IRMA CORDOVA MD Attending Unavailable BROWN DO, JUAN R Primary Care Unavailable PATTI MOTA, DR RAMEY Attending Unavailabl e BROWN DO, JUAN R Primary Care Unavailable JEN DOOLEY Attending Unavailable BROWN DO, JUAN R Primary Care Unavailable PATTI MOTA, DR RAMEY Attending Unavailabl e BROWN DO, JUAN R Primary Care Unavailable PATTI MOTA, DR RAMEY Attending Unavailabl e BROWN DO, JUAN R Primary Care Unavailable PATTI MOTA, DR RAMEY Attending Unavailabl e BROWN DO, JUAN R Primary Care Unavailable JOSÉ MIGUEL MOTA, DR ASIF Roberts Attending Unavailab le BROWN DO, JUAN R Primary Care Unavailable Medications Current Medications Medication Drug Class(es) Dates Sig (Normalized) Sig (Original) escitalopram 20 mg oral tablet (10 sources) Serotonin Reuptake Inhibitor Start: 07-09-2022 escitalopram 20 mg oral tablet Dose : 20 mg = 1 tab(s), Oral, qDay, # 90 tab(s), 3 Refill(s), Pharmacy: [facility] #[id number], Depression, 153, cm, 07/09/22 11:12:00 EDT, Height Start Date: 07/09/22 Status: Ordered Completed/Discontinued Medications Medication Drug Class(es) Dates Sig (Normalized) Sig (Original) folic acid 1 mg oral tablet (11 sources) Start: 08-23-2023 folic acid 1 mg [...] current use of drug therapy; Translations: [Other penitentiary (current) drug therapy] Episodic Other non-traumatic joint disorders (11 sources) Knee pain 10-05-2015 Episodic Other non-traumatic joint disorders (1 source) Pain in right knee; Translations: [Pain in joint, lower leg] 08-30-2023 Episodic Other skin disorders (1 source) Non-scarring alopecia; Translations: [Nonscarring hair loss, unspecified] Episodic Pleurisy; pneumothorax; pulmonary collapse (1 source) Pleurisy; Translations: [Pleurisy] Onset: 11-06-2023 Episodic Rheumatoid arthritis and related disease (12 sources) Rheumatoid arthritis of multiple joints; Translations: [Rheumatoid arthritis with rheumatoid factor of multiple sites without organ or systems involvement] Chronic Spondylosis; intervertebral disc disorders; other back problems (1 source) Lumbosacral spondylosis; Translations: [Other spondylosis, lumbosacral region] Chronic Results Test Name Value Interpretation Reference Range Facil ity Vital Signs Date Time Vital Sign Value Performing Clinician Faci lity 11-06-2023 14:59-0500 Body temperature 98.42 [degF] WILEY PATTERSON MD [facility] 11-06-2023 14:59-0500 Diastolic Blood Pressure Non-Invasive 70 mm[Hg] WILEY PATTERSON MD [facility] 11-06-2023 14:59-0500 Heart rate 99 /min WILEY PATTERSON MD [facility] 11-06-2023 14:59-0500 Respiratory rate 20 /min WILEY PATTERSON MD [facility] 11-06-2023 14:59-0500 Systolic Blood Pressure Non-Invasive 125 mm[Hg] WILEY PATTERSON MD [facility] Encounters Encounter Date Encounter Type Care Provider Facility Start: 02-03-2024 End: 02-04-2024 ambulatory JEN MORAN Facility:B Start: 02-03-2024 End: 02-03-2024 Patient encounter procedure JEN MORAN [facility] Start: 01-29-2024 ambulatory JUAN R BROWN DO Faci lity:B Start: 01-21-2024 End: 01-22-2024 ambulatory JUAN R BROWN DO Facility:B Start: 01-21-2024 End: 01-21-[address] ASIF VALDEZ MD [facility] Start: 12-30-2023 ambulatory JUAN R BROWN DO Faci lity:B Start: 12-16-2023 ambulatory JUAN R BROWN DO Faci lity:B Start: 12-13-2023 End: 12-14-[address] ASIF VALDEZ MD Facility:B Start: 12-04-[address] ASIF VALDEZ MD F acility:B Start: 11-06-2023 End: 11-06-2023 Emergency department patient visit WILEY PATTERSON Facility:B Start: 11-06-2023 End: 11-06-2023 Emergency department patient visit WILEY PATTERSON MD [facility] Start: 11-05-2023 End: 11-06-[address] KAROLINE ARMSTRONG MD Facility:B Start: 11-05-2023 End: 11-05-[address] KAROLINE ARMSTRONG MD [facility] Start: 09-18-2023 Orders Only Sadie Hansen MD Work Phone: [facility] Procedures Date Procedure Procedure Detail Performing Clinician Start: 05-21-2003 Decompression of med faye nerve LERICA ROCK THERAPIST RADIATION-FILM NUMBERER Plan of Treatment Date Care Activity Detail Author Start: 08-02-2023 Influenza vaccination Influenza Vacc ine (#1) [facility] Start: 12-02-2022 Depression Assessment Depression Ass essment [facility] Start: 06-23-2021 Covid-19 Vaccine (3 - Moderna risk series) Covid-19 Vaccine (3 - Moderna risk series) [facility] Start: 2018 Shingrix Vaccine (1 of 2) Shingrix V accine (1 of 2) [facility] Start: 2013 Cologuard (FIT-DNA) Cologuard (FIT-D NA) [facility] Start: 2013 Colonoscopy Colonoscopy [facility] Start: 2013 Colorectal Cancer Screening Colorectal Cancer Screening [facility] Start: [address] COLONOGRAPHY [facility] [place] Start: 2013 Diabetes Screening Diabetes Screenin g [facility] Start: 2013 Fecal Occult Blood Fecal Occult Bloo d [facility] Start: 2013 Lipid 1996 panel - S thelma or Plasma Lipid Screening [facility] Start: 2013 SIGMOIDOSCOPY SIGMOIDOSCOPY [facility] Start: 2008 Mammography Mammogram Screening [facility] Start: 1998 HPV Testing HPV Testing [facility] Start: 1989 Pap Testing Pap Testing [facility] Start: 1987 Shingrix Vaccine (1 of 2) Shingrix V accine (1 of 2) [facility] Start: 1987 Urine microalbumin profile DTa P,Tdap,Td Vaccine (1 - Tdap) [facility] Start: 1986 Hepatitis C Screening Hepatitis C Sc reening [facility] Start: 1986 HIV Screening HIV Screening [facility] Start: 1974 Pneumococcal vaccination Pneum ococcal Vaccine (1 - PCV) [facility] Start: 1968 Covid-19 Vaccine (#1) Covid-19 Vacci ne (#1) [facility] Start: 1968 Hepatitis B Vaccine (1 of 3 - 3-dose series) Hepatitis B Vaccine (1 of 3 - 3-dose series) [facility] Immunizations Immunization Date Immunization Notes Care Provider [facility] 02-13-2010 influenza virus vaccine, H1N1, live [facility] THERAPIST RADIATION-FILM NUMBERER [facility] 02-13-2010 influenza virus vaccine, unspecified formulation Sadie Hansen MD Work Phone: [facility] Payers Date Payer Category Payer Private Health Insurance LATOYA BHAKTA OAP [id number] 2022-Present [phone] [facility] [id number] [place] [address] Open Access [id number] 2022 Private Health Insurance [id number] 1968 Unknown [id number] .627 1968 Unknown [id number] .[id number] .627 1968 Unknown [id number] .[id number] .627 1968 Unknown [id number] 2.16.840.1.748656.3.579.2 .627 1968 Unknown [id number] 2.16.840.1.560140.3.579.2 .1968 Unknown [id number] 2.16.840.1.285771.3.579.2 .1968 Unknown [id number] 2.16.840.1.354302.3.579.2 .1968 Unknown [id number] 2.16.840.1.860695.3.579.2 .1968 Unknown [id number] 2.16.840.1.133099.3.579.2 .1968 Unknown [id number] 2.16.840.1.317396.3.579.2 .1968 Unknown [id number] 2.16.840.1.747945.3.579.2 .1968 Unknown [id number] 2.16.840.1.900982.3.579.2 .1968 Unknown [id number] 2.16.840.1.529488.3.579.2 .1968 Unknown [id number] 2.16.840.1.232980.3.579.2 .1968 Unknown [id number] 2.16.840.1.562800.3.579.2 .627 Social History Date Type Detail Facility Start: 10-27-2019 End: 11-06-2023 Never smoked tobacco (finding) [facility] Sex Assigned At [facility] Tobacco smoking status TNIS Tobacco smoking consumption unknown [facility] Start: 1970 Sex Assigned At Not on file [facility] Gender identity Not on file [facility] in Functional Status Date Assessment Result Facility 11-06-2023 Functional Status Standard Safet y ID band on, Call device within reach, Bed in low position, Wheels locked, Bedside Cart Locked, Visitor at bedside, Safety level maintained [facility] Clinical Notes 06-19-2022 to 01-21-2024 Sadie Hansen MD - 08/30/2023 10:29 AM EDTTelephone Encounter - Tiffany Alberto RN - 08/29/2023 2:22 PM EDTRadiologyRadiologyRadiologyRadiologyRadiology Note Date & Type Note Facility 01-21-2024 Note ORIGINAL EXAMINATION: CT OF THE LEFT KNEE WITHOUT CONTRAST 01/21/2024 2:04 pm TECHNIQUE: CT of the left knee was performed without the administration of intravenous contrast. Multiplanar reformatted images are provided for review. Automated exposure control, iterative reconstruction, and/or weight based adjustment of the mA/kV was utilized to reduce the radiation dose to as low as reasonably achievable. COMPARISON: None. HISTORY ORDERING SYSTEM PROVIDED HISTORY: Reason for Exam: Varus. FINDINGS: No acute fracture or dislocation. Mild osseous demineralization diffusely. No visible aggressive osseous lesions. A traction type osseous lesion is noted of the medial aspect of the fibular head. There is mild to moderate tricompartmental joint space narrowing with subchondral sclerosis, marginal osteophyte formation, and subchondral cysts. Partial medial and lateral meniscal body extrusion. Mild lateral patellar subluxation. Hypoplastic trochlear groove. There is a trace volume joint effusion. Trace volume Ingram's cyst. Mild proximal tibiofibular degenerative change. Tendons and ligaments are suboptimally evaluated on this examination. Enthesopathy of the extensor mechanism. Scattered mild muscle atrophy. Provided images of the hip and hemipelvis exhibit no acute osseous abnormalities or aggressive osseous lesions. Moderate osteoarthrosis of the left hip. Mild osteophytosis and joint space narrowing of the pubic symphysis. The included intrapelvic contents exhibit no acute abnormalities. Provided images of the ankle exhibit no acute osseous abnormalities or aggressive osseous lesions. Incompletely evaluated dorsal osteophytosis of the midfoot. IMPRESSION: 1. No acute osseous abnormality or aggressive osseous lesion. 2. Mild to moderate tricompartmental osteoarthrosis. Trace volume effusion. Interpreted by: Willis Flores DO Preliminary Report By: Willis Flores DO Electronically signed By Willis Flores DO Dictated Date: 01/21/2024 2:11:39 PM Prelim Date: 01/21/2024 2:17:32 PM Sign Date: 01/21/2024 2:17:32 PM Ordering Provider: ASIF VALDEZ [facility] 11-06-2023 Hospital Discharge instructions Patient Education 11/06/2023 [...] away from secondhand smoke. You may use dyvn-hca-svswlpn medicines to control pain, unless another pain [...] neck, arm, or back Coughing up blood [phone] [employer]. [address] [place] [address], [place] [address]. All rights reserved. This information is not intended as a substitute for professional medical care. Always follow your healthcare professional's instructions. Follow Up Care 11/06/2023 14:56:38 With:JUAN MCCRAY DO Address: [facility] [address] [place] [phone] When:2-4 days [facility] 11-06-2023 Note Discharge Instructions Thank you for allowing [facility] to assist you with your healthcare needs. [...] MCCRAY DO When Within 2-4 days Where: [facility] [address] [place] [address] [place] [phone] Allergies NKA Medications Please ask your primary [...] away from secondhand smoke. You may use ejek-wrv-armgctd medicines to control pain, unless another pain [...] neck, arm, or back Coughing up blood [phone] [employer]. [address] [place] [address]. All rights reserved. This information is not intended as a substitute for professional medical care. Always follow your healthcare professional's instructions. Additional Information VACCINATE! IT SAVES LIVES! Members of the community who have not yet received the COVID-19 vaccine and would like to receive it can visit one of [facility] vaccine clinics. There are many vaccine clinic locations within the [facility]. For locations and available times, please visit [email or web address] [email or web address] It is important to note that some COVID mobile vaccine clinics are held outdoors and may be canceled in rainy or stormy conditions. To learn more about pediatric vaccinations (ages 5-11), we invite you to visit the [facility] webpage. https://www.[facility].org/pag es/4613-Flhsu-Gjutwuqwzki-Frequent kn-Qjbhv-Fzvfjilne.html To learn more about the COVID-19 vaccine, we invite you to visit the CDC website for a list of frequently asked questions. https://www.cdc.gov/coronavirus/ 19-ncov/vaccines/faq.html [facility] Patient Portal Access Instructions: Stay connected with your healthcare team and access your personal medical information anytime with the [facility] Patient Portal. If you would like a full copy of your medical records please contact the [facility] Medical Records Department Saturday through Saturday between 8a.m. and 4:30p.m. Please follow the directions below to access the portal: 1.Access the email account you provided upon registration to the [facility].2.Look for an invitation email from [facility].3.Open the email and access the invitation link: Accept Invitation to [facility]4.Fill in the required sotelo to create your account. Sign into [email or web address] with your username and password that you [...] you will allow to register on the [facility] Patient Portal for access to your information. You can also access the [facility] Patient Portal on the [employer] eric. Simply click on Health Records under Health Data and then click on the [employer] logo. HOW TO SAFELY DISPOSE OF PRESCRIPTION [...] Call your local pharmacy or go to http://bit.Manyeta/8E3Se0a to find one close to you.3.Make use of household items: Use cat litter or old coffee grounds to dispose medications if other options are not available. Mix your drugs with these household products, seal them in an airtight container and throw it into the garbage. Call [facility]: [phone] to be sure your drugs can be [...] aware that I should contact my doctor. Patient/Ruling Machine Feeder Signature: Date/Time: Relationship to Patient: ___ Witness Name/Signature: Date/Time: [facility] 11-06-2023 Note Sinus rhythm Electronic Signature: WILEY PATTERSON MD 11/06/2023 15:56:11 [facility] 11-06-2023 Note ORIGINAL EXAMINATION: ONE XRAY [...] 11/06/2023 3:50:25 PM Ordering Provider: ASIF THOMPSON [facility] 08-30-2023 Note HNO ID: [id number] Author: Sadie Hansen MD Service: ? Author [...] to clinic as needed. Sadie Hansen MD [facility] 08-30-2023 History of Present illness Narrative History [...] Sadie Hansen MD documented in this encounter [facility] 08-29-2023 Miscellaneous Notes Called and spoke with patient to confirm PTC CD. This patient stated her name is not the patient in this record. This patient needs no appt with Dr Hansen and does not need to see orthopedics. Clearly a mistake scheduling. Appt cancelled. Tiffany Alberto RN documented in this encounter [facility] 06-19-2022 Evaluation + Plan note Future Scheduled TestsMA Mammo Screening Bilateral w/ Bharathi 06/19/22 [facility] Evaluation + Plan note No data available for this section [facility] Evaluation + Plan note Future Appointments Appointment Date:07/17/2022 10:00:00 AM Scheduled Provider:IVÁN LUGO MD Location:[facility] Appointment Type:[facility] Diagnostic Tests PendingTestosterone Level Total 06/19/22Rheumatoid Factor 06/19/22Antinuclear Antibody Screen, Serum 06/19/22 Future Scheduled TestsMA Mammo Screening Bilateral w/ Bharathi 06/19/22 [facility] Evaluation + Plan note Future Appointments Appointment Date:12/04/2023 01:00:00 PM Scheduled Provider: Location:[facility] Appointment Type:CT Knee w/o Contrast Right Future Scheduled TestsCT Knee w/o Contrast Right 12/04/23 [facility] Evaluation + Plan note Future Appointments Appointment Date:01/22/2024 02:00:00 PM Scheduled Provider: Location:[facility] Appointment Type:PT Treatment [facility] Appointment Date:01/24/2024 01:30:00 PM Scheduled Provider: Location:[facility] Appointment Type:PT [facility] Future Scheduled TestsCT Knee w/ Contrast Right 12/13/23CT Knee w/o Contrast Left 12/13/23CT Knee w/o Contrast Right 12/16/23CT Knee w/o Contrast Right 12/04/23 [facility] Evaluation + Plan note Future Appointments Appointment Date:02/05/2024 02:30:00 PM Scheduled Provider: Location:[facility] Appointment Type:PT Treatment - [facility] Appointment Date:02/10/2024 01:30:00 PM Scheduled Provider: Location:[facility] Appointment Type:PT Outpatient Evaluation Future Scheduled TestsCT Knee w/ Contrast Right 12/13/23CT Knee w/o Contrast Left 12/13/23CT Knee w/o Contrast Right 12/16/23CT Knee w/o Contrast Right 12/04/23 [facility] Diagnosis Primary osteoarthritis of both knees- Primary Primary localized osteoarthrosis, lower leg documented in this encounter [facility] Discharge instructions No data available for this section [facility] Progress note No data available for this section [facility] Summary Purpose Family History No Family History Records Found No data available for this section No data available for this section No data available for this section No data available for this section No Family History Records Found Advance Directives No Advanced Directives Records FoundNo Advanced Directives Records Found Reason for Referral Specialty Diagnoses / Procedures Referred By Contmellissa t Referred To Contact Orthopedics Diagnoses Primary osteoarthritis of both knees Procedures CONSULT TO ORTHOPAEDICS OFFICE/OUTPATIENT [facility] 60-74 MINUTES Sadie Hansen MD [address] [id number] Referral ID Status Reason Start Date Expiration Date Visits Requested Visits Authorized [id number] Authorized PCP Requested Referral 3 09/17/2024 1 1 Additional Source Comments Care Team (unrecognized sect ion and content) Care Team Personnel Name: ROSA MAGANA APRN-SANTIAGO Position: P4 Advanced Practice Nurse Med Service: Active Provider Member Role: Primary Care Physician Address: Address: [address] [facility] [place] [phone]- Care Team Related Persons Name: IVIS HARDING Address: Home [address] [facility] [address] [address] [place] Address: Temporary [address] [place] [address] Name: JAMIE BONILLA Address: Home [address] [place] [phone] [place] Address: Temporary [address] [place], [place] [phone] Name: DAVID BONILLA Address: Home [address] [place], [place] [phone] [place] Care Team Personnel Name: ROSA MAGANA Position: P4 Advanced Practice Nurse Member Role: Primary Care Physician Address: Address: [address] [place] [address] [place] Care Team Related Persons Name: IVIS HARDING Address: Home [address] [address] [place] Address: Temporary [address] [address] Name: JAMIE BONILLA Address: Home [address] [place], [place] [phone] [place] Address: Temporary [address] [place], [place] [phone] Name: DAVID BONILLA Address: Home [address], [place] [phone] [place] Care Team Personnel Name: ROSA MAGANA Position: P4 Advanced Tennis Player Member Role: Primary Care Physician Address: Address: [address] [place] [address] [place] Care Team Related Persons Name: IVIS HARDING Address: Home [address] [address] [place] Address: Temporary [address] [address] Name: JAMIE BONILLA Address: Home [address] [place], [place] [phone] [place] Address: Temporary [address], [place] [phone] Name: DAVID BONILLA Address: Home [address] [place] [phone] [place] Patient Care team informatio n (unrecognized section and content) Care Team Personnel Name: JUAN MCCRAY DO Member Role: Primary Care Physician Address: Address: [facility] [address] [place] [address] [place] Care Team Related Persons Name: IVIS HARDING Address: Home [address] [address] [place] Address: Temporary [address] [address] Name: JAMIE BONILLA Address: Home [address] [place], [place] [phone] [place] Address: Temporary [address], [place] [phone] Name: DAVID BONILLA Address: Home [address] [place], [place] [phone] [place] Care Team Personnel Name: JUAN MCCRAY DO Member Role: Primary Care Physician Address: Address: [address] [place] [address]- [place] Care Team Related Persons Name: IVIS HARDING Address: Home [address] [address] [place] Address: Temporary [address] [address] Name: JAMIE BONILLA Address: Home [address] [place], [place] [phone] [place] Address: Temporary [address] [phone] Name: DAVID BONILLA Address: Home [address] [place] [phone] [place] Care Team Personnel Name: JUAN MCCRAY DO Member Role: Primary Care Physician Address: Address: [address] [place] [address] [place] Care Team Related Persons Name: IVIS HARDING Address: Home [address] [address] [place] Address: Temporary [address] [address] Name: JAMIE BONILLA Address: Home [address] [place] [phone] [place] Address: Temporary [address] [place], [place] [phone] Name: DAVID BONILLA Address: Home [address], [place] [phone] [place] Care Team Personnel Name: JUAN MCCRAY DO Member Role: Primary Care Physician Address: Address: [address] [place] [address]- [place] Care Team Related Persons Name: IVIS HARDING Address: Home [address] [address] [place] Address: Temporary [address] [address] Name: IRENE, JAMIE J Address: Home [address] [place] [phone] [place] Address: Temporary [address], [place] [phone] Name: DAVID BONILLA Address: Home [address] [place], [place] [phone] [place] Care Team Personnel Name: JUAN MCCRAY DO Member Role: Primary Care Physician Address: Address: [address] [address] [place] Name: ASIF THOMPSON DO Position: Resident Member Role: Resident Address: Address: [address] [facility] [place] [address]- [place] Name: WILEY PATTERSON MD Position: ED Physician Member Role: Attending Physician Address: Address: [facility] [address] [place] [address]- [place] Name: Elda Julio RN Position: ED RN Member Role: ED RN Care Team Related Persons Name: IVIS HARDING Address: Home [address] [address] [place] Address: Temporary [address] [address] Name: JAMIE BONILLA Address: Home [address] [place], [place] [phone] [place] Address: Temporary [address], [place] [phone] Name: DAVID BONILLA Address: Home [address], [place] [phone] [place] Care Team Personnel Name: JUAN MCCRAY DO Member Role: Primary Care Physician Address: Address: [address] [address]- [place] Care Team Related Persons Name: IVIS HARDING Address: Home [address] [address] [place] Address: Temporary [address] [address] Name: JAMIE BONILLA Address: Home [address] [place], [place] [id number] [place] Address: Temporary [address] [place], [place] [id number] Name: DAVID BONILLA Address: Home [address] [place], [place] [id number] [place] Care Team Personnel Name: JUAN MCCRAY DO Member Role: Primary Care Physician Address: Address: [id number] [place] [address]- Care Team Related Persons Name: IVIS HARDING Address: Home [address] [address] [place] Address: Temporary [address] [address] Name: JAMIE BONILLA Address: Home [address] [place], [place] [phone] [place] Address: Temporary [address] [place] [phone] Name: DAVID BONILLA Address: Home [address] [place], [place] [phone] [place] Source Comments (unrecognize d section and content) In the event this informatio n is protected by the Federal Confidentiality of Alcohol and Drug Abuse Patient Records regulations: The Federal rules restrict any use of the information to criminally investigate or prosecute any alcohol or drug abuse patient.[facility] the event this information is protected by the Federal Confidentiality of Alcohol and Drug Abuse Patient Records regulations: The Federal rules restrict any use of the information to criminally investigate or prosecute any alcohol or drug abuse patient.[facility] the event this information is protected by the Federal Confidentiality of Alcohol and Drug Abuse Patient Records regulations: The Federal rules restrict any use of the information to criminally investigate or prosecute any alcohol or drug abuse patient.[facility] Reason for Visit (unrecogniz ed section and content) INFORMATION SOURCE (unrecogn ized section and content) DATE CREATED AUTHOR AUTHOR'S MISSY FLOWERS 02/07/2024 [facility] ([place]) FOR RECORDS PERTAINING TO PATIENTS WHO ARE [...] BE BASED ON THE PRIMARY CLINICAL RECORDS. [facility]. provides no warranty or guarantee of the accuracy or completeness of information in this document.
[2024-02-11] MEDS: Enoxaparin 120 MG/0.8 ML Syringe 110 MG SC (00:28)
== END 2024-02-11 00:35 | disposition home or self-care (01) ==
LOC: ED 02-11 00:11
PROVIDERS: Emergency Provider Emergency Medicine; PCP Family Medicine; Visit Provider Emergency Medicine
DX: M79.89 Other specified soft tissue disorders (principal); Z96.652 Presence of left artificial knee joint; Z90.49 Acquired absence of other specified parts of digestive tract
CPT/HCPCS: 96374; 99282

== ENCOUNTER → 2024-02-11 | Outpatient (CLI) | payer OTHER, SELFPAY ==
--- NOTE | 2024-02-11 11:10 | VDLE_ITS ---
Reason For Study: Left leg swelling RIGHT LEFT CFV is compressible, spontaneous, phasic, GSV is normal. competent and demonstrates normal CFV is compressible, spontaneous, phasic, augmentation. competent, and demonstrates normal Procedure augmentation. This is a venous duplex using B-mode, color FV is compressible, spontaneous, phasic, flow and spectral Doppler. competent and demonstrates normal Exam performed in department. augmentation. A preliminary report was called and/or faxed POP V is compressible, spontaneous, phasic, to PCP: Dr. Stacy, Ortho: Dr. Stone. competent and demonstrates normal augmentation. T/P Trunk is compressible. PTV is compressible. LT PerV is compressible. VL/Venous Duplex US, Unilateral Interpretation Summary Deep veins of the left lower extremity are patent and compressible segmentally. There is no evidence of left lower extremity deep vein thrombosis. The left great saphenous vein eric ears patent and compressible segmentally. Ordering Physician: Mode Bennett Referring Physician: Dorian Stacy M.D. Performed By: Janessa Vaca RVT
== END | disposition home or self-care (01) ==
PROVIDERS: PCP Family Medicine; Referring Provider Emergency Medicine; Visit Provider Emergency Medicine
DX: M79.89 Other specified soft tissue disorders (principal)
CPT/HCPCS: 93971

== ENCOUNTER → 2024-03-17 | Outpatient (CLI) | payer OTHER, SELFPAY ==
[2024-03-17 16:32] LABS: Absolute Lymphocyte Count 1.44 X10^3/uL (0.83-4.51); Absolute Neutrophil Count 2.1 X10^3/uL (2.0-7.7); Basophil# 0.03 X10^3/uL; Basophil% 0.7 % (0-1); Eosinophil# 0.08 X10^3/uL; Eosinophils% 1.9 % (0-5); Hematocrit 36.7 % (37-47); Hemoglobin 11.5 g/dL (12.0-15.0); Lymphocyte # 1.44 X10^3/ul (0.83-4.51); Lymphocyte % 34.3 % (19-41); Mean Corp Hgb Conc 31.3 g/dL (32-36); Mean Corpuscular Hgb 27.3 pg (27.0-32.0); Mean Platelet Vol. 11.9 fl (6.2-12.0); Monocyte# 0.52 X10^3/uL; Monocyte% 12.4 % (0-10); NRBC Flagged by Analyzer 0 % (0-5); Neutrophil # 2.12 X10^3/uL (2.7-7.7); Neutrophil % 50.5 % (47-70); POSITIVE MORPHOLOGY YES; Platelet Count 151 K/mm3 (150-450); RBC Distribution Width CV 14.5 % (11.6-14.6); RBC Distribution Width SD 45.5 fl (35.1-43.9); Red Blood Count 4.22 M/mm3 (4.2-5.4); White Blood Count 4.2 K/mm3 (4.4-11.0)
[2024-03-17 16:38] LABS: Differential Indicated SCAN CRITERIA MET
[2024-03-17 16:54] LABS: Differential Comment SCANNED
[2024-03-17 16:55] LABS: Erythrocyte Sedimentation Rate 27 mm/hr (0-30)
== END | disposition home or self-care (01) ==
LOC: BIMLAB 14:55
PROVIDERS: PCP Family Medicine; Visit Provider Family Medicine
DX: D69.6 Thrombocytopenia, unspecified (principal); M06.9 Rheumatoid arthritis, unspecified; M75.40 Impingement syndrome of unspecified shoulder
CPT/HCPCS: 36415; 85025; 85652; 86431

== ENCOUNTER → 2024-06-25 | Outpatient (CLI) | payer OTHER, SELFPAY ==
[2024-06-25 16:47] LABS: ALB/GLOB Ratio 0.8 RATIO (0.9-2.4); AST(SGOT) 31 U/L (15-37); Alanine Aminotransfer ALT/SGPT 35 U/L (13-56); Albumin, Serum 3.7 g/dL (3.2-5.0); Alkaline Phosphatase 78 U/L (45-117); Anion Gap 3 (5-15); BUN 13 mg/dL (7-18); BUN/Creat Ratio 15.2 RATIO (10-20); Calcium,Total 8.6 mg/dL (8.5-10.1); Chloride 106 mmol/L (98-107); Creatinine, Serum 0.86 mg/dL (0.55-1.02); EST Glomerular Filtration Rate 73 mL/min (>60); Est Glom Filt Rate - Afr Amer 88 mL/min (>60); Globulin 4.4 g/dL (2.2-4.2); Glucose 141 mg/dL (74-106); Protein, Total 8.1 g/dL (6.4-8.2); Sodium Level 138 mmol/L (136-145)
[2024-06-29 12:09] LABS: ANTINUCLEAR ANTIBODIES DIRECT Positive (Negative); Anti-Centromere B Ab <0.2 AI (0.0-0.9); Anti-Chromatin <0.2 AI (0.0-0.9); Anti-Jo <0.2 AI (0.0-0.9); Anti-Scleroderma-70 AB <0.2 AI (0.0-0.9); Anti-dsDNA Ab <1 IU/mL (0-9); RNP Ab <0.2 AI (0.0-0.9); SJOGREN'S Anti-SS-A test > 8.0 AI (0.0-0.9); Smith Ab <0.2 AI (0.0-0.9)
== END | disposition home or self-care (01) ==
LOC: BIMLAB 14:48
PROVIDERS: PCP Family Medicine; Referring Provider Physician Assistant; Visit Provider Physician Assistant
DX: R21 Rash and other nonspecific skin eruption (principal)
CPT/HCPCS: 36415; 80053; 86038; 86225; 86235

== ENCOUNTER → 2024-08-12 | Outpatient (CLI) | payer OTHER, SELFPAY ==
[2024-08-18 19:07] LABS: HPV APTIMA, High Risk Negative (Negative)
== END | disposition home or self-care (01) ==
LOC: LABSPEC 11:17
PROVIDERS: PCP Family Medicine; Referring Provider Family Medicine; Visit Provider Family Medicine
DX: Z01.419 Encounter for gynecological examination (general) (routine) without abnormal findings (principal)
CPT/HCPCS: 87624; 88142

== ENCOUNTER → 2024-10-14 | Outpatient (CLI) | payer OTHER, SELFPAY ==
[2024-10-14 10:23] LABS: Absolute Lymphocyte Count 1.21 X10^3/uL (0.83-4.51); Basophil# 0.02 X10^3/uL; Basophil% 0.6 % (0-1); Eosinophil# 0.03 X10^3/uL; Eosinophils% 0.8 % (0-5); Hemoglobin 12.9 g/dL (12.0-15.0); Lymphocyte # 1.21 X10^3/ul (0.83-4.51); Lymphocyte % 33.7 % (19-41); Mean Corp Hgb Conc 32.3 g/dL (32-36); Mean Corpuscular Hgb 27.4 pg (27.0-32.0); Mean Corpuscular Volume 84.9 fL (81-99); Mean Platelet Vol. 12.4 fl (6.2-12.0); Monocyte# 0.31 X10^3/uL; Monocyte% 8.6 % (0-10); NRBC Flagged by Analyzer 0 % (0-5); Neutrophil # 2.01 X10^3/uL (2.7-7.7); Platelet Count 137 K/mm3 (150-450); RBC Distribution Width CV 13.9 % (11.6-14.6); RBC Distribution Width SD 42.6 fl (35.1-43.9); Red Blood Count 4.71 M/mm3 (4.2-5.4); White Blood Count 3.6 K/mm3 (4.4-11.0)
[2024-10-14 10:39] LABS: Erythrocyte Sedimentation Rate 25 mm/hr (0-30)
[2024-10-14 10:40] LABS: EXAGEN MAILED SPECIMEN
[2024-10-14 10:42] LABS: Color, Urine Yellow (Yellow); Glucose, Dipstick Normal (Normal); Ketone-Dipstick Negative (Negative); Leukocyte Esterase-Dipstick 25 /ul (Negative); Nitrite-Dipstick Negative (Negative); Occult Blood-Urine Negative /ul (Negative); Protein-Dipstick 15 mg/dl (Negative); Specific Gravity, Urine 1.015 (1.002-1.030); Urine Bilirubin Dipstick Negative (Negative); Urine Clarity Clear (Clear); Urine Urobilinogen Normal (Normal)
[2024-10-14 11:19] LABS: Protein, Urine (Random) 13.8 mg/dL (<11.9); Protein:Creat Ratio 148 mg/g CRE (0-200)
[2024-10-14 12:42] LABS: ALB/GLOB Ratio 0.8 RATIO (0.9-2.4); AST(SGOT) 23 U/L (15-37); Alanine Aminotransfer ALT/SGPT 25 U/L (13-56); Albumin, Serum 3.6 g/dL (3.2-5.0); Alkaline Phosphatase 75 U/L (45-117); Anion Gap 5 (5-15); BUN 15 mg/dL (7-18); BUN/Creat Ratio 22.8 RATIO (10-20); CRP 7.63 mg/L (0.0-3.0); Calcium,Total 8.4 mg/dL (8.5-10.1); Chloride 108 mmol/L (98-107); Creatinine, Serum 0.66 mg/dL (0.55-1.02); EST Glomerular Filtration Rate 99 mL/min (>60); Est Glom Filt Rate - Afr Amer 119 mL/min (>60); Globulin 4.6 g/dL (2.2-4.2); Glucose 143 mg/dL (74-106); Potassium 3.1 mmol/L (3.5-5.1); Protein, Total 8.2 g/dL (6.4-8.2); Sodium Level 141 mmol/L (136-145)
== END | disposition home or self-care (01) ==
LOC: MTLAB 09:27
PROVIDERS: PCP Family Medicine; Referring Provider Internal Medicine Rheumatology; Visit Provider Internal Medicine Rheumatology
DX: R76.8 Other specified abnormal immunological findings in serum (principal); M05.79 Rheumatoid arthritis with rheumatoid factor of multiple sites without organ or systems involvement; Z79.899 Other long term (current) drug therapy
CPT/HCPCS: 36415; 80053; 81002; 82570; 84156; 85025; 85652; 86140

== ENCOUNTER → 2024-11-17 | Outpatient (CLI) | payer OTHER, SELFPAY ==
[2024-11-17 13:37] LABS: T4 Free Direct 0.81 ng/dL (0.76-1.46)
[2024-11-18 15:07] LABS: Thyroglobulin Antibody 1.2 IU/mL (0.0-0.9); Thyroid Peroxidase AB 217 IU/mL (0-34)
== END | disposition home or self-care (01) ==
LOC: BIMLAB 11:01
PROVIDERS: PCP Family Medicine; Referring Provider Family Medicine; Visit Provider Family Medicine
DX: M35.1 Other overlap syndromes (principal)
CPT/HCPCS: 36415; 84439; 84443; 86376; 86800

== ENCOUNTER 2024-12-07 05:54 | Day surgery (SDC) | payer OTHER, SELFPAY ==
--- NOTE | 2024-12-03 15:21 | PAT.ANE_ITS ---
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 When Was Last Pacemaker Check QUESTION #4 FULL TEXT: You/Your Family Experience fever (hyperthermia) with Anesthesia Last Oral Intake Last Oral intake: Last Oral Intake NPO since Meds taken in AM with sips of water? 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 Female Yes 12/03/24 10:45 HX of Motion Sickness No 12/03/24 10:45 HX of N/V After Surgery Yes 12/03/24 10:45 Non-Smoker Yes 12/03/24 10:45 Duration of Surgery greater No 12/03/24 10:45 than 60 minutes Number of Risk Factors 3 12/03/24 10:45 PONV Score Moderate Risk 12/03/24 10:45 Height & Weight Height & Weight: Anesthesia: Height & Weight Height 5 ft 1 in 10/02/24 10:08 Respiratory Assessment Respiratory Assessment - field crop harvest worker: Respiratory Tract Infection Hx - field crop 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 Has anyone observed you stop breathing during sleep? STOP Results Positive 12/03/24 10:45 QUESTION #5 FULL TEXT : Do you snore loudly (louder than talking or can be heard through closed doors)? 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 Specify any problems Hx of Preganancy in last 3 No 12/03/24 10:45 Months Nurse Filling Out Transfusion [email or web address] 12/03/24 10:45 & Questions: Date: 12/03/24 12/03/24 10:45 Time: 10:47 12/03/24 10:45 Patient unable to answer at this time (ie. 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: /Reproductive Hx- field crop harvest worker Hx Now Gestational Age (in weeks): EDC: Hx Hx Para Hx Section SAB PFSH Medical History (Updated 12/03/24 @ 10:51 by Chano Landeros) CPAP (continuous positive airway pressure) dependence Sleep apnea History of echocardiogram Anabela thyroiditis Upper respiratory infection Bilateral primary osteoarthritis of knee Left knee pain Right knee pain History of torn meniscus of right knee Pericarditis Home Medications ?Medication ?Instructions ?Recorded ?Last Taken ?Type folic acid 1 mg tablet 2 mg PO BID 11/17/24 Unknown History leucovorin calcium 15 mg tablet 15 mg PO SA 11/17/24 Unknown History methotrexate sodium 2.5 mg tablet 12.5 mg PO SA 11/17/24 Unknown History prednisone 10 mg tablet 10 mg PO DAILY PRN ra 12/03/24 Unknown History Allergy/AdvReac Type Severity Reaction Status Date / Time No Known Allergies Allergy Verified 12/03/24 10:43 Family History Father Diabetes Heart disease Brother Diabetes Mother Arthritis Surgical History History of total bilateral knee replacement History of carpal tunnel release History of History of knee surgery History of cholecystectomy Social History household members: spouse current occupational status: employed current occupation: [employer] Smoking Status: Never smoker alcohol intake: current alcohol intake frequency: holidays/special occasions only substance use type: does not use what type of physical activity do you participate in: none Audit: Pertinent Findings Pertinent Findings Echo (EF%) pertinent findings: August 09, 2023. 65% ejection fraction. Normal valves. Additional pertinent findings: October 14, 2024. Potassium is 3.1 Recommendation Anesthesia Recommendation Anesthesia recommendation: F/U recommended Follow up Details BMP Recommendation: Yes BMP Rec Details: Repeat potassium on day of surgery.
[2024-12-07] VITALS (8 sets, daily range): BP systolic 129–142; BP diastolic 62–88; PULSE 70–92; RESP 16–22; TEMP 36.3–36.6; O2SAT 98–100; BMI 29.5
[2024-12-07 06:35] LABS: Potassium 3.7 mmol/L (3.5-5.1)
--- NOTE | 2024-12-07 06:38 | PCM.HP.STD ---
HPI - General General Date of Admission: 12/07/24 Date of Service: 12/07/24 Chief Complaint: Screening colonoscopy HPI Narrative JODY BONILLA, is a 54 F who presents [facility] Medical History CPAP (continuous positive airway pressure) dependence Sleep apnea History of echocardiogram Anabela thyroiditis Upper respiratory infection Bilateral primary osteoarthritis of knee Left knee pain Right knee pain History of torn meniscus of right knee Pericarditis Home Medications ?Medication ?Instructions ?Recorded ?Last Taken ?Type folic acid 1 mg tablet 2 mg PO BID 11/17/24 Unknown History leucovorin calcium 15 mg tablet 15 mg PO SA 11/17/24 Unknown History methotrexate sodium 2.5 mg tablet 12.5 mg PO SA 11/17/24 Unknown History prednisone 10 mg tablet 10 mg PO DAILY PRN ra 12/03/24 Unknown History Allergy/AdvReac Type Severity Reaction Status Date / Time No Known Allergies Allergy Verified 12/07/24 06:12 Family History Father Diabetes Heart disease Brother Diabetes Mother Arthritis Surgical History History of total bilateral knee replacement History of carpal tunnel release History of History of knee surgery History of cholecystectomy Social History household members: spouse current occupational status: employed current occupation: [employer] Smoking Status: Never smoker alcohol intake: current alcohol intake frequency: holidays/special occasions only substance use type: does not use what type of physical activity do you participate in: none ROS Constitutional Constitutional: Denies fatigue, fever(s), poor appetite, weight gain or weight loss Gastrointestinal Gastrointestinal: Denies belching, bloating, change in bowel habits, change in stool character, chewing difficulty, coffee ground emesis, constipation, cramping, diarrhea, dyspepsia, dysphagia, early satiety, excessive flatus, fecal incontinence, heartburn, hematemesis, hematochezia, hemorrhoids, loose stools, melena, nausea, odynophagia, rectal bleeding, tenesmus, vomiting or weight changes Vital Signs Vital Signs Vital Signs: 12/07/24 06:13 12/07/24 06:13 Temperature 98 F Temperature Source Temporal Pulse Rate 92 Respiratory Rate 16 Respiratory Pattern Normal Blood Pressure 142/88 H Blood Pressure Mean 106 Blood Pressure Source Monitor Blood Pressure Position Semi-Fowlers Blood Pressure Location Right Arm Pulse Ox 98 Oxygen Delivery Method High Flow Weight Weight: 156 lb 4.924 oz Body Mass Index (BMI) 29.5 Physical Exam Const alert, oriented x3, no apparent distress and healthy appearing General Appearance: cooperative GI normal to inspection, nondistended, normoactive bowel sounds, soft to palpation, non-tender and non-distended Percussion: normal to percussion Rectal Exam: deferred Results Lab / Micro Data 12/07/24 06:20 Labs: Laboratory Results - last 24 hr 12/07/24 06:20: Potassium 3.7 Assessment & Plan Assessment/Plan (1) Encounter for screening for malignant neoplasm of colon: PLAN: She was explained alternatives, benefits, risks including not withstanding bleeding, infection, sepsis, perforation, need for emergent . She will have an ASA of 3.
--- NOTE | 2024-12-07 06:45 | PRE.ANES_ITS ---
ASA Classification* ASA Classification ASA Classification: 2 Assessment & Plan Anesthesia* Anesthesia Assessment Anesthesia Assessment: Discussed sedation and/or anesthesia options, risks, benefits, and alternatives with patient/parents/legal guardian/POA. Questions invited. The patient/parents/legal guardian/POA seems to understand and agrees to proceed with anesthesia plan. Reviewed the physical assessment, medical history, allergy history and patient home medications list prior to surgery/procedure/anesthetic and documented any changes. Performed airway and anesthesia risk assessments. Anesthesia Type Anesthesia Type: MAC Anesthesia Focused Assessment* Temperature: 98 F Pulse Rate: 92 Blood Pressure: 142/88 Respiratory Rate: 16 Pulse Ox: 98 Airway Assessment Mouth opens: >3 cm Mallampati Score: II Focused Labs Anesthesia Preop lab: CBC WBC 3.6 K/mm3 (4.4-11.0) L 10/14/24 09:33 RBC 4.71 M/mm3 (4.2-5.4) 10/14/24 09:33 Hgb 12.9 g/dL (12.0-15.0) 10/14/24 09:33 Hct 40.0 % (37-47) 10/14/24 09:33 Plt Count 137 K/mm3 (150-450) L 10/14/24 09:33 CHEMISTRY Potassium 3.7 mmol/L (3.5-5.1) 12/07/24 06:20 Sodium 141 mmol/L (136-145) 10/14/24 09:33 BUN 15 mg/dL (7-18) 10/14/24 09:33 Creatinine 0.66 mg/dL (0.55-1.02) 10/14/24 09:33 Glucose 143 mg/dL (74-106) H 10/14/24 09:33 TSH 1.290 uIU/mL (0.358-3.740) 11/17/24 11:02 COAG PT 13.3 SECONDS (11.7-14.9) 09/28/22 10:09 Pre-Assessment Diagnosis/Proposed Procedure Planned Operative Procedure(s): COLONOSCOPY Anesthesia History 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 When Was Last Pacemaker Check QUESTION #4 FULL TEXT: You/Your Family Experience fever (hyperthermia) with Anesthesia Last Oral Intake Last Oral intake: Last Oral Intake NPO since 20:00 12/07/24 06:13 Meds taken in AM with sips of water? 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 Female Yes 12/03/24 10:45 HX of Motion Sickness No 12/03/24 10:45 HX of N/V After Surgery Yes 12/03/24 10:45 Non-Smoker Yes 12/03/24 10:45 Duration of Surgery greater No 12/03/24 10:45 than 60 minutes Number of Risk Factors 3 12/03/24 10:45 PONV Score Moderate Risk 12/03/24 10:45 Height & Weight Height & Weight: Anesthesia: Height & Weight Height 5 ft 1 in 12/07/24 06:13 Weight: 70.9 kg 12/07/24 06:13 Body Mass Index (BMI) 29.5 12/07/24 06:13 Respiratory Assessment Respiratory Assessment - harbour master: Respiratory Tract Infection Hx - harbour master Hx Respiratory Tract Infection No 12/03/24 10:45 STOP Sleep Apnea STOP Sleep Apnea - harbour master: STOP Sleep Apnea - harbour master Hx Hypertension No 12/03/24 10:45 Hx Sleep Apnea Yes 12/03/24 10:45 CPAP Yes 12/03/24 10:45 BIPAP No 12/03/24 10:45 Do you snore loudly (louder than talking or can be heard Do you often feel tired/ fatigued/ sleepy during daytime? Has anyone observed you stop breathing during sleep? STOP Results Positive 12/03/24 10:45 QUESTION #5 FULL TEXT : Do you snore loudly (louder than talking or can be heard through closed doors)? 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 Specify any problems Hx of Preganancy in last 3 No 12/03/24 10:45 Months Nurse Filling Out Transfusion [email or web address] 12/03/24 10:45 & Questions: Date: 12/03/24 12/03/24 10:45 Time: 10:47 12/03/24 10:45 Patient unable to answer at this time (ie. 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 Hx- harbour master Hx Now Gestational Age (in weeks): EDC: Hx Hx Para Hx Section SAB PFSH Medical History CPAP (continuous positive airway pressure) dependence Sleep apnea History of echocardiogram Anabela thyroiditis Upper respiratory infection Bilateral primary osteoarthritis of knee Left knee pain Right knee pain History of torn meniscus of right knee Pericarditis Home Medications ?Medication ?Instructions ?Recorded ?Last Taken ?Type folic acid 1 mg tablet 2 mg PO BID 11/17/24 Unknown History leucovorin calcium 15 mg tablet 15 mg PO SA 11/17/24 Unknown History methotrexate sodium 2.5 mg tablet 12.5 mg PO SA 11/17/24 Unknown History prednisone 10 mg tablet 10 mg PO DAILY PRN ra 12/03/24 Unknown History Allergy/AdvReac Type Severity Reaction Status Date / Time No Known Allergies Allergy Verified 12/07/24 06:12 Family History Father Diabetes Heart disease Brother Diabetes Mother Arthritis Surgical History History of total bilateral knee replacement History of carpal tunnel release History of History of knee surgery History of cholecystectomy Social History household members: spouse current occupational status: employed current occupation: [employer] Smoking Status: Never smoker alcohol intake: current alcohol intake frequency: holidays/special occasions only substance use type: does not use what type of physical activity do you participate in: none Review of Systems (Anesthesia) ROS Narrative System reviewed and no additional complaints, except as documented.
--- NOTE | 2024-12-07 07:00 | COLBX_PTH ---
PATIENT: JODY BONILLA LOC: EN U#:[id number] AGE/SX: 54/F ROOM: RE12/07/[address]: Dr. Salty Perla DO : 1970 BED: DIS: 12/07/2024 SPEC #: [id number] RECD: 12/07/24 14:21 STATUS: KACI REJaney #: [id number] SHERWIN: 12/07/24 07:[address]: Salty Perla DEPT: SURGICAL PATHOLOGY RECD BY: Betsy Wright ENTERED: 12/08/24 10:47 SP TYPE: COLON BX OTHR DR: Dr. Espinoza Stacy, DO Tissues: Rectum, NOS Procedures: Surgery Specimen Level IV HEADER OPERATION: Colonoscopy with biopsy PRE-OP DIAGNOSIS: Encounter for screening for malignant neoplasm of colon TISSUE SUBMITTED: Rectum polyp biopsy MICROSCOPIC DIAGNOSIS Rectal polyp, biopsy: Tubular adenoma. 12/09/2024 MICROSCOPIC DESCRIPTION Slides are reviewed. GROSS DESCRIPTION Received in fixative is one container labeled with the patient's name and designated Rectum polyp biopsy. The specimen consists of one irregular fragment of light waldrop soft tissue that measures 0.5 x 0.5 x 0.1 cm. The specimen is totally submitted in one cassette. 12/08/2024 TC:1 CPT:44364
--- NOTE | 2024-12-07 07:44 | OP.CCLET_ITS ---
12/07/2024 Espinoza Stacy Re : Colonoscopy procedure for Tamiko Vargasdner Dear Dr. Stacy This procedure was performed on Saturday, December 07, 2024. My impressions and recommendations are as follows: Impressions : - One 8 mm polyp in the rectum, removed with a jumbo cold forceps. Resected and retrieved. - The examination was otherwise normal on direct and retroflexion views. Recommendations : - Discharge patient to home. - Resume previous diet. - Continue present medications. - Await pathology results. - Repeat colonoscopy in 5 years for surveillance. My findings are described in the full procedure note, which is enclosed. If I can be of further assistance, please feel free to contact me at . Sincerely, Salty Perla, 12/07/2024 7:43:51 AM This report has been signed electronically.
--- NOTE | 2024-12-07 07:44 | OP.COLON_ITS ---
Patient Name: Tamiko Quach Procedure Date: 12/07/2024 7:20 AM Date of : 1970 Age: 54 Procedure: Colonoscopy Indications: Screening for colorectal malignant neoplasm Providers: Salty Perla DO Referring MD: Espinoza Stacy Medicines: Monitored Anesthesia Care Patient Profile: This is a 54 year old female. Refer to note in patient chart for documentation of history and physical. Last Colonoscopy: none. The patient's first colonoscopy is today. Complications: No immediate complications. Procedure: Pre-Anesthesia Assessment: - Prior to the procedure, a History and Physical was performed, and patient medications and allergies were reviewed. The patient is competent. The risks and benefits of the procedure and the sedation options and risks were discussed with the patient. All questions were answered and informed consent was obtained. Patient identification and proposed procedure were verified by the physician in the pre-procedure area. Mental Status Examination: alert and oriented. Airway Examination: normal oropharyngeal airway and neck mobility. Respiratory Examination: clear to auscultation. CV Examination: normal. Prophylactic Antibiotics: The patient does not require prophylactic antibiotics. Prior Anticoagulants: The patient has taken no anticoagulant or antiplatelet agents except for NSAID medication. ASA Grade Assessment: II - A patient with mild systemic disease. After reviewing the risks and benefits, the patient was deemed in satisfactory condition to undergo the procedure. The anesthesia plan was to use monitored anesthesia care (MAC). Immediately prior to administration of medications, the patient was re-assessed for adequacy to receive sedatives. The heart rate, respiratory rate, oxygen saturations, blood pressure, adequacy of pulmonary ventilation, and response to care were monitored throughout the procedure. The physical status of the patient was re-assessed after the procedure. After I obtained informed consent, the scope was passed under direct vision. Throughout the procedure, the patient's blood pressure, pulse, and oxygen saturations were monitored continuously. The Colonoscope was introduced through the anus and advanced to the cecum, identified by appendiceal orifice and ileocecal valve. The colonoscopy was performed without difficulty. The patient tolerated the procedure well. The quality of the bowel preparation was adequate. The ileocecal valve, appendiceal orifice, and rectum were photographed. Scope In: 7:30:35 AM Scope Withdrawal Time 0 hours 7 minutes 59 seconds Scope Out: 7:40:16 AM Total Procedure Duration Time 0 hours 9 minutes 41 seconds Findings: The perianal and digital rectal examinations were normal. An 8 mm polyp was found in the rectum. The polyp was sessile. The polyp was removed with a jumbo cold forceps. Resection and retrieval were complete. Verification of patient identification for the specimen was done. Estimated blood loss: Minimal. The exam was otherwise without abnormality on direct and retroflexion views. Impression: - One 8 mm polyp in the rectum, removed with a jumbo cold forceps. Resected and retrieved. - The examination was otherwise normal on direct and retroflexion views. Recommendation: - Discharge patient to home. - Resume previous diet. - Continue present medications. - Await pathology results. - Repeat colonoscopy in 5 years for surveillance. Procedure Code(s): --- Professional --- 15382, Colonoscopy, flexible; with biopsy, single or multiple CPT copyright 2021 [employer]. All rights reserved. The codes documented in this report are preliminary and upon car dumper operator helper review may be revised to meet current compliance requirements. Salty Perla DO 12/07/2024 7:43:51 AM This report has been signed electronically. Number of Addenda: 0 Note Initiated On: 12/07/2024 7:20 AM
--- NOTE | 2024-12-07 07:55 | PCM.POST.ANE ---
Anesthesia: Postop Eval I Current Vital Signs Temperature: 98 F Pulse Rate: 79 Blood Pressure: 129/62 Respiratory Rate: 22 Pulse Ox: 99 Oxygen Delivery Method: Room Air Assessment Airway patent: Yes Spontaneous unlabored respirations: Yes Mental status: Awake and Calm nausea: No Vomiting: No Anesthesia Complication: No Fluid Hydration Crystalloid volume administer (ml): 40 Total IV fluid infused: 40 Progress Note Anesthesia document: Postop Eval 1 completed: Yes
--- NOTE | 2024-12-07 08:04 | PCM.POSTANE2 ---
Anesthesia Postop Eval I Sum Postop Eval Completion status Anesthesia document: Postop Eval 1 completed: Yes Anesthesia Postop Eval I Summary Anesthesia Postop Eval I Summary: Anesthesia Postop Eval I: Assessment Summary Airway patent Yes 12/07/24 07:56 [email or web address] Spontaneous unlabored Yes 12/07/24 07:56 [email or web address] respirations Mental status Awake,Calm 12/07/24 07:56 [email or web address] nausea No 12/07/24 07:56 [email or web address] Vomiting No 12/07/24 07:56 [email or web address] Anesthesia Postop Eval I: Fluid Summary Crystalloid volume administer 40 12/07/24 07:56 [email or web address] (ml) Colloids volume administered ( ml) Blood Product volume administered (ml) Total IV fluid infused 40 12/07/24 07:56 [email or web address] Anesthesia Postop Eval I: Summary Notes Anesthesia Complication No 12/07/24 07:56 [email or web address] Anesthesia Complication Comment: Post-operative progress note Anesthesia: Postop Eval II Evaluation Mental status: Awake Pain Level: 0 nausea: No Vomiting: No
== END 2024-12-07 08:28 | disposition home or self-care (01) ==
LOC: EN 05:55 → AC 06:00
PROVIDERS: Anesthesiology; PCP Family Medicine; Referring Provider Family Medicine; Visit Provider Internal Medicine Gastroenterology
PROC: 0DJD8ZZ Inspection of Lower Intestinal Tract, Via Natural or Artificial Opening Endoscopic (ICD-10-PCS; CPT 45378; principal; 2024-12-07 06:55)
DX: Z12.11 Encounter for screening for malignant neoplasm of colon (principal); K62.1 Rectal polyp; G47.30 Sleep apnea, unspecified; Z99.89 Dependence on other enabling machines and devices; Z96.653 Presence of artificial knee joint, bilateral; Z90.49 Acquired absence of other specified parts of digestive tract
CPT/HCPCS: 45380; 84132; 88305; A4216; J2405

== ENCOUNTER → 2025-11-04 | Outpatient (CLI) | payer OTHER, SELFPAY ==
--- NOTE | 2025-11-04 15:15 | BI_ITS ---
EXAM: SCRN MAMM (CAD)W/ALECIA BILAT DATE: 11/04/2025 CLINICAL HISTORY: F, Age 55 y/o , SCREENING TECHNIQUE: Procedure Code: [id number] Modality: MG Procedure: SCRN MAMM (CAD)W/ALECIA BILAT COMPARISON: Prior exam(s) were compared FINDINGS: TISSUE DENSITY: The breasts are heterogeneously dense, which may obscure small masses. Bilateral Breast Mammographic Findings: No significant masses, calcifications or other abnormalities are identified. BI/SCRN MAMM (CAD)W/ALECIA BILAT IMPRESSION: No mammographic evidence of malignancy. OVERALL FINAL ASSESSMENT BI-RADS 1: NEGATIVE. RECOMMENDATION: Routine annual follow-up in 1 Year Additional Recommendation none A letter with findings and recommendations will be mailed to the patient. Reading Location: [id number]
== END | disposition home or self-care (01) ==
PROVIDERS: PCP Family Medicine; Referring Provider Family Medicine; Visit Provider Family Medicine
DX: Z12.31 Encounter for screening mammogram for malignant neoplasm of breast (principal)
CPT/HCPCS: 77063; 77067